=== PATIENT | male | born 1960 | race Caucasian/White ===

== ENCOUNTER 2017-03-03 12:22 | Inpatient (IN) ==
[2017-03-02 16:37] LABS: Appearance,Urine CLEAR; Bacteria,Urine 0 /hpf (0); Bilirubin,Urine NEG (NEG); Color,Urine YELLOW; Glucose,Urine (UA) >=500 mg/dL (NEG); Leukocyte Esterase,Urine NEG /uL (NEG); Mucus,Urine FEW /hpf (0); Nitrate,Urine NEG (NEG); Protein,Urine >=500 mg/dL (NEG); Specific Gravity,Urine 1.027 (1.000-1.035); Urine Blood NEG mg/dL (<0.03); Urine RBC 2 /hpf (0-1); Urine Squamous Epithelial Cell < 1 /hpf (0-4); Urine WBC 4 /hpf (0-4); Urobilinogen,Urine NEG (NEG)
[2017-03-02 18:07] LABS: Basophils # (Auto) 0 K/mcL (0.0-0.3); Basophils % (Auto) 0.3 % (0.0-2.0); Eosinophils # (Auto) 0.2 K/mcL (0.0-0.7); Eosinophils % (Auto) 1.7 % (0.0-7.0); Granulocytes % (Auto) 79.9 % (38.0-78.0); Lymphocytes # (Auto) 1.3 K/mcL (1.5-4.8); Lymphocytes % (Auto) 12.8 % (15.5-49.0); Mean Cell Volume 87.4 fL (80.0-100.0); Mean Corpuscular HGB Conc 32.8 g/dL (31.0-36.0); Mean Corpuscular Hemoglobin 28.6 pg (26.0-34.0); Monocytes # (Auto) 0.6 K/mcL (0.1-0.9); Monocytes % (Auto) 5.3 % (1.0-12.0); Platelet Count 293 K/mcL (140-440); RBC 3.36 M/mcL (4.50-5.90); Red Cell Distribution Width 13.5 % (11.5-14.5)
[2017-03-02 19:37] LABS: Blood Urea Nitrogen 18 mg/dl (6-20)
[~2017-03-03 12:22] MED LIST: ceFAZolin 1 GM VIAL IV SCH
[2017-03-03] MEDS ORDERED: LIDOCAINE HCL/PF 100 MG/5 ML SYRINGE IV ONE (14:04)
[2017-03-03] MEDS ORDERED: KETAMINE 100 MG/ML ML ONE (14:04)
[2017-03-03] MEDS ORDERED: PROPOFOL 200 MG/20 ML VIAL IV ONE (14:04)
[2017-03-03] MEDS ORDERED: GLYCOPYRROLATE 0.2 MG/ML VIAL IV ONE (14:04)
[2017-03-03] MEDS ORDERED: ONDANSETRON 4 MG/2 ML VIAL ONE (14:04)
[2017-03-03] MEDS ORDERED: MIDAZOLAM 2 MG/2 ML VIAL ONE (14:04)
[2017-03-03] MEDS ORDERED: PROMETHAZINE 25 MG/ML VIAL IV PRN (14:38)
[2017-03-03] MEDS ORDERED: METHOCARBAMOL 1,000 MG/10 ML VIAL IV PRN (14:38)
[2017-03-03] MEDS ORDERED: ONDANSETRON 4 MG/2 ML VIAL IV PRN ×2 (14:38→15:01)
[2017-03-03] MEDS ORDERED: IPRATROPIUM/ALBUTEROL 3 ML AMPUL.NEB NEB PRN (14:38)
[2017-03-03] MEDS ORDERED: MEPERIDINE 25 MG/ML SYRINGE IV PRN (14:38)
[2017-03-03] MEDS ORDERED: LACTATED RINGERS 1,000 ML IV SCH (14:45)
[2017-03-03] MEDS ORDERED: MAGNESIUM HYDROXIDE 30 ML ORAL.SUSP PO PRN (15:01)
[2017-03-03] MEDS ORDERED: BENZONATATE 100 MG CAPSULE PO PRN (15:10)
[2017-03-03] MEDS ORDERED: HYDROcodone/APAP 5/325MG TABLET PO PRN (15:10)
[2017-03-03] MEDS ORDERED: INSULIN DETEMIR 100 UNIT SUB-Q SCH (15:15)
[2017-03-03] MEDS ORDERED: 0.9 % SODIUM CHLORIDE 1,000 ML IV SCH (15:15)
[2017-03-03] MEDS ORDERED: NON FORMULARY MEDICATION 1 DOSE MISCELL (Sildenafil Citrate [Viagra] 100 MG) PO SCH (15:15)
[2017-03-03] MEDS: fentaNYL 100 MCG/2 ML VIAL IV PRN ×3 (15:20→15:53)
[2017-03-03] MEDS ORDERED: TRANEXAMIC ACID 1,000 MG/10 ML VIAL IV ONE (15:30)
--- NOTE | 2017-03-03 15:31 | Brief Operative Note ---
Date of procedure: 03/03/17 Pre-op diagnosis: Dehiscence BK amputation Post-op diagnosis: same Procedure: Revision BKA right Grafts/Implants: No Anesthesia: GETA Findings: traumatic dehiscence Complications: none Surgeon: Edgard Patterson Metalizer: Tan Fry Estimated blood loss (cc): 250 Specimens Removed/Pathology: other (bone biopsy and bone culture) Condition: stable Disposition: PACU
--- NOTE | 2017-03-03 16:08 | Operative Note ---
DATE OF OPERATION: 03/03/2017 PREOPERATIVE DIAGNOSIS: Traumatic dehiscence, right tapdh-smo-seii amputation. POSTOPERATIVE DIAGNOSIS: Traumatic dehiscence, right joshj-vuf-lnxx amputation. OPERATION: Revision lasyl-krv-tqcy amputation. SURGEON: Edgard Patterson M.D. SCREW DRIVER OPERATOR: Tan Fry PA-C. ANESTHESIA: General. SUMMARY OF PROCEDURE: General anesthesia was attained. The right leg was prepped and draped. The patient's wound had dehisced from falling out of bed while not wearing his postoperative brace. There was exposed bone. I made a more proximal incision by 5 to 10 mm on both the anterior and posterior flaps. This was taken down directly to the bone. The skin was not mobile at this point. I resected the bone about 1 cm to 1.5 cm above the previous osteotomy. The fibula was re-osteotomized with the saw as well. I then took a biopsy of the tibial bone as well as a culture using a rongeur and a curet. The wound was thoroughly irrigated. The tourniquet was let down. Arterial bleeding was stopped by tying with 0 silk. I then sprayed 1 gram of tranexamic acid diluted in 50 mL of saline to assist with hemostasis. After the irrigation and application of the acid, the wound was closed in layers using 0 Monocryl deep, 2-0 Monocryl more superficially, and praveen and mattress sutures of #2 and 2-0 nylon on the skin. A sterile compressive dressing was applied followed by a posterior splint. The sponge and needle count was correct. The patient tolerated the procedure well and was taken to the recovery room in stable condition. TJF:mely Job ID: [id number] Doc ID: [id number] Edgard Patterson MD
[2017-03-03] MEDS ORDERED: DEXTROSE 50% 50 ML VIAL IV PRN (17:45)
[2017-03-03] MEDS ORDERED: DEXTROSE 31 GM ORAL.SUSP PO PRN (17:45)
--- NOTE | 2017-03-03 17:55 | Internal Medicine Consult Note ---
Medical - CN: HPI - Data of Consult Patient: new to practice Consult date: 03/03/17 Requesting Physician: Edgard Patterson Primary Care Provider: Buddy Galloway - Consult Narrative Reason for consult: Hyperglycemia, Medical Management. History of present illness: Mr. Molina is a 56 year old Male with h/o DM, HTN, HLD, CKD, Right BKA who was admitted to the ortho service for revision of right BKA per the patient chart and patient, he fell down 3 -4 weeks ago, and injued the stump, the stump split open then, the patient was seen in [facility] ER and then later in the wound clinic to hep with wound management, apparanetly it did not help and therefore stump revision was planned. The patient has chr pain in the right leg, phantom pains he notes, he notes he has dry mouth, thristy and hungry. He has not taken his usual insulin x 2 days, due to appointments as well as planned sx today, he admits to having some kidney issues and is scheduled to see Dr Rey HE did some lab work yesterday which revealed K 5.2, Glucose 6.5, Na 126, no anion gap or acidosis, creat was 2.0, he was anemic at around 9.5. The patient underwent the right stump revion today , Medicine is consulted for medical management. beyond the leg pain, and dryness of mouth, hunger, patient has no other complaints. CC: Edgard Patterson All systems: reviewed and no additional remarkable complaints except as stated ( as per HPI) Medical - CN: [facility] Medical history: Medical History Absence of lower leg below knee (Acute) Pruritus ani (Acute) Onychomycosis (Acute) Pressure ulcer, lower back (Acute) Psoriasis (Acute) Urinary stream slowing (Acute) Urinary retention (Acute) Spider bite (Acute) Microalbuminuria (Acute) Hypertension, essential (Acute) Hyperlipidemia (Acute) Foot pain (Acute) Eczema (Acute) Diabetes mellitus, type II (Acute) Depressive disorder (Acute) Depression (Acute) Aortic aneurysm (Acute) Amputated toe (Acute) Surgical history: Past Surgical History History of surgery on arm (Acute) History of surgical removal of skin lesion (Acute) H/O amputation of lesser toe (Acute) History of tonsillectomy (Acute) History of colonoscopy (Acute 02/02/13) History of cataract surgery (Acute) History of amputation below knee (Acute) Pertinent family history: Family History Unknown No family history of malignant neoplasm No family history of cardiovascular disease Mother Chronic Kidney Disease Medical - CN: Meds Home Medications Medication Instructions Recorded Confirmed Type aspirin 325 mg tablet 650 mg PO QDAY tab 08/19/14 03/02/17 History docusate sodium 100 mg capsule 100 mg PO BID cap 08/19/14 03/02/17 History enalapril maleate 10 mg tablet 5 mg PO QDAY tab 08/19/14 03/02/17 History ergocalciferol (vitamin D2) 50,000 50,000 unit PO QWEEK cap 08/19/14 03/02/17 History unit capsule hydrocodone 5 mg-acetaminophen 325 1 tab PO Q8H PRN tab 08/19/14 03/02/17 History mg tablet insulin detemir 100 unit/mL 100 unit SUB-Q .COMPLEX ml 08/19/14 03/02/17 History subcutaneous solution metformin 500 mg tablet 500 mg PO QDAY tab 08/19/14 03/02/17 History omega-3 fatty acids 1,000 mg 1,000 mg PO BID cap 08/19/14 03/02/17 History capsule sildenafil 100 mg tablet 100 mg PO ONCE #10 tab 04/02/15 03/02/17 Rx tamsulosin 0.4 mg capsule 0.4 mg PO QDAY #30 cap 11/09/16 03/02/17 Rx Amitriptyline [Elavil] 25 mg PO HS 03/02/17 03/02/17 History Benzonatate [Tessalon] 100 mg PO TIDP PRN 03/02/17 03/02/17 History Famotidine [Pepcid] 20 mg PO DAILY 03/02/17 03/02/17 History Triamcinolone Acetonide 15 gm TP DAILY 03/02/17 03/02/17 History Atorvastatin [Lipitor] 20 mg PO HS 03/03/17 03/03/17 History Citalopram [Celexa] 20 mg PO DAILY 03/03/17 03/03/17 History Diltiazem [Cardizem Cd] 120 mg PO DAILY 03/03/17 03/03/17 History Gabapentin [Neurontin] 300 mg PO ONCE 03/03/17 03/03/17 History Insulin Detemir [Levemir Flextouch] 03/03/17 History Allergies Allergy/AdvReac Type Severity Reaction Status Date / Time No Known Drug Allergies Allergy Unverified 04/01/15 14:38 Medical - CN: Exam - Constitutional Vitals: Temp Pulse Resp BP Pulse Ox 98.1 F 81 16 138/65 99 03/03/17 16:30 03/03/17 16:30 03/03/17 16:30 03/03/17 16:30 03/03/17 16:30 Exam: GENERAL: The patient is a well-developed, well-nourished in no apparent distress. Is alert and oriented x3. VITAL SIGNS: Reviewed and as noted elsewhere. HEENT: Head is normocephalic and atraumatic. Extraocular muscles are intact. Pupils are equal, round, and reactive to light. Nares appeared normal. Mouth appears any without lesions. Mucous membranes are dry NECK: Normal to inspection, Supple, No lymphadenopathy or thyromegaly. LUNGS: Air entry equal on both sides, no wheezing, crackles or rhonchi noted. No accessory muscles of respiration HEART: Regular rate and rhythm normal, S1 and S2 heard, no Gallop, S3 or Rub Noted, No Gross murmur heard. ABDOMEN: Soft, nontender, and nondistended. Positive bowel sounds. No hepatosplenomegaly was noted. EXTREMITIES: No cyanosis, clubbing, NEUROLOGIC: Cranial nerves II through XII are grossly intact. Motor and Sensory System Grossly Intact PSYCHIATRIC: Normal affect, Normal Mood. Appropriate Behavior. SKIN: No ulceration or wounds noted, No jaundice, No rash noted. acanthosis nigrams in the neck Medical - CN: Result - Labs CBC & Chem 7: 03/02/17 15:16 03/02/17 15:16 Labs: Short CBC 03/02/17 Range/Units 15:16 WBC 10.4 (4.5-11.0) K/mcL Hgb 9.6 L (13.5-16.5) g/dL Hct 29.4 L (41.0-55.0) % Plt Count 293 (140-440) K/mcL BMP 03/02/17 15:16 Sodium 126 L Potassium 5.2 H Chloride 91 L Carbon Dioxide 24 BUN 18 Creatinine 2.0 H Glucose 605 H* Calcium 8.5 L Medical - CN: A/P - Narrative A/P Narrative: A/P DM uncontrolled: Due to non compliance with meds, GLucose was very high yesterday, better before sx? will repeat labs. NO e/o DKA on yesterdays lab, will check hydroxybutyrate too. IV fluids and ssi insulin for now, if labs suggestive of DKA will exchange operator. FS was 389. d/c metformin in light of renal failure. HTN: BP ok, resumed home medications for blood pressure. HLD resume statin Hyponatremia: likely pseudohyponatremia secondary to elevated glucose Hyperkalemia K was 5.2, recheck, EKG done yesterday was nsr CKD stage 3, creat was 2.0, has been referred to nephrology by PCP, likely secondary to DM. Monitor renal function. BPH: followed by Dr Grande as outpatient, on flomax, continue same. DVT as per surgery CC diet Social History - Tobacco smoking status: Never smoker - Alcohol alcohol intake frequency: a few times a month - Substance use substance use type: former substance user
[2017-03-03 18:21] LABS: Basophils # (Auto) 0 K/mcL (0.0-0.3); Basophils % (Auto) 0.2 % (0.0-2.0); Eosinophils # (Auto) 0.3 K/mcL (0.0-0.7); Eosinophils % (Auto) 3.1 % (0.0-7.0); Granulocytes % (Auto) 73.7 % (38.0-78.0); Lymphocytes # (Auto) 1.5 K/mcL (1.5-4.8); Lymphocytes % (Auto) 16.7 % (15.5-49.0); Mean Cell Volume 87.3 fL (80.0-100.0); Mean Corpuscular HGB Conc 33.2 g/dL (31.0-36.0); Monocytes # (Auto) 0.6 K/mcL (0.1-0.9); Monocytes % (Auto) 6.3 % (1.0-12.0); Platelet Count 248 K/mcL (140-440); RBC 2.84 M/mcL (4.50-5.90); Red Cell Distribution Width 13.5 % (11.5-14.5)
[2017-03-03] MEDS: HYDROcodone/APAP 10/325MG TABLET PO PRN (18:22)
[2017-03-03] MEDS: 0.9 % SODIUM CHLORIDE 1,000 ML IV SCH (18:26)
[2017-03-03 18:44] LABS: ALT/SGPT < 5 U/l (0-40); Albumin 1.8 gm/dL (3.2-5.2); Albumin/Globulin Ratio 0.4 (1.0-2.3); Alkaline Phosphatase 120 U/L (39-117); Bilirubin,Direct < 0.2 mg/dL (0.0-0.3); Blood Urea Nitrogen 15 mg/dl (6-20); Gamma Glutamyl Transpeptidase 11 U/L (8-61); Magnesium 2.1 mg/dL (1.6-2.5); Uric Acid 5.7 mg/dL (2.5-8.0)
[2017-03-03 19:17] LABS: Beta Hydroxybutyrate 0.42 mmol/L (< 0.27)
[2017-03-03] MEDS: INSULIN GLARGINE, HUMAN 1 UNIT/0.01 ML SQ SCH (20:18)
[2017-03-03] MEDS: DOCUSATE SODIUM 100 MG CAPSULE PO SCH (20:18)
[2017-03-03] MEDS: AMITRIPTYLINE 25 MG TABLET PO SCH (20:18)
[2017-03-03] MEDS: ASPIRIN 325 MG ENTERIC COATED TABLET PO SCH (20:18)
[2017-03-03] MEDS: GABAPENTIN 300 MG CAPSULE PO SCH (20:18)
[2017-03-03] MEDS: ATORVASTATIN 20 MG TABLET PO SCH (20:18)
[2017-03-03] MEDS ORDERED: INSULIN LISPRO 1 UNIT/0.01 ML UNIT SQ SCH (21:00)
[2017-03-03] MEDS ORDERED: DOCUSATE SODIUM 100 MG CAPSULE PO SCH (21:00)
[2017-03-03] MEDS: ceFAZolin 1 GM VIAL IV SCH (22:00)
[2017-03-03] MEDS: 0.9 % SODIUM CHLORIDE 10 ML SYRINGE IV SCH (22:01)
[2017-03-04] MEDS: 0.9 % SODIUM CHLORIDE 1,000 ML IV SCH ×2 (00:45→07:38)
[2017-03-04] MEDS: HYDROcodone/APAP 10/325MG TABLET PO PRN ×3 (04:59→17:15)
[2017-03-04] MEDS: ceFAZolin 1 GM VIAL IV SCH (05:30)
[2017-03-04] MEDS: 0.9 % SODIUM CHLORIDE 10 ML SYRINGE IV SCH ×3 (05:39→23:26)
[2017-03-04 06:49] LABS: Basophils # (Auto) 0 K/mcL (0.0-0.3); Basophils % (Auto) 0.3 % (0.0-2.0); Eosinophils # (Auto) 0.4 K/mcL (0.0-0.7); Eosinophils % (Auto) 3.8 % (0.0-7.0); Granulocytes % (Auto) 69.6 % (38.0-78.0); Lymphocytes # (Auto) 1.6 K/mcL (1.5-4.8); Mean Cell Volume 88.3 fL (80.0-100.0); Mean Corpuscular HGB Conc 32.9 g/dL (31.0-36.0); Mean Corpuscular Hemoglobin 29.1 pg (26.0-34.0); Monocytes # (Auto) 0.9 K/mcL (0.1-0.9); Monocytes % (Auto) 9.3 % (1.0-12.0); Platelet Count 247 K/mcL (140-440); RBC 2.67 M/mcL (4.50-5.90); Red Cell Distribution Width 13.6 % (11.5-14.5)
[2017-03-04 07:26] LABS: ALT/SGPT < 5 U/l (0-40); Albumin 1.8 gm/dL (3.2-5.2); Albumin/Globulin Ratio 0.5 (1.0-2.3); Alkaline Phosphatase 108 U/L (39-117); Bilirubin,Direct < 0.2 mg/dL (0.0-0.3); Blood Urea Nitrogen 19 mg/dl (6-20); Gamma Glutamyl Transpeptidase 10 U/L (8-61); Magnesium 2.2 mg/dL (1.6-2.5); Uric Acid 6.3 mg/dL (2.5-8.0)
--- NOTE | 2017-03-04 07:52 | Orthopedic Progress Note ---
Subjective Patient information: Note initiated : 03/04/17 at 7:50 am Service Date, if different from initiated Date: [] Patient: Sree Molina 56 y/o M admitted on 03/03/17 for Amputation Revision Right Leg Below the Knee. Chief Complaint: [] Principal diagnosis: Revison amputattion yesterday Objective Vital signs: Vital Signs Temp Pulse Pulse Resp BP Pulse Ox 03/04/17 04:00 97.5 F 82 16 144/83 98 03/04/17 00:00 97.5 F 82 16 102/65 96 03/03/17 20:00 98.5 F 98 H 18 131/71 94 03/03/17 18:45 98.5 F 89 18 157/83 97 03/03/17 16:55 82 18 164/88 98 03/03/17 16:40 86 16 156/91 100 03/03/17 16:30 98.1 F 81 16 138/65 99 03/03/17 16:25 83 16 132/59 98 03/03/17 16:10 97.9 F 81 16 127/85 97 03/03/17 15:50 97.8 F 79 16 154/82 99 03/03/17 15:35 97.8 F 81 16 150/80 100 03/03/17 15:30 97.8 F 83 16 100/60 100 03/03/17 15:25 97.8 F 81 16 100/53 100 03/03/17 15:20 97.8 F 78 16 128/68 100 03/03/17 12:45 97.6 F 81 16 154/75 100 Intake and Output 03/03/17 03/04/17 03/04/17 21:59 05:59 13:59 Intake Total 1999 1348 / 1348 1000 / 1000 Output Total 400 / 400 Balance 1999 948 / 948 1000 / 1000 Intake: IV 948 / 948 1000 / 1000 Sodium Chloride 0.9% 1,000 ml @ 948 / 948 1000 / 1000 150 mls/hr IV .Q6H40M [facility] Rx#: [id number] Oral 800 / 800 400 / 400 IV - Manual Only 1200 / 1200 Output: Urine Catheter Amount 400 / 400 Other: Meal Dinner Percent of Meal Consumed 100% Feeding Ability Assist with Tray Set Up Weight 240 lb 8 oz Intake & Output: Intake & Output 03/03/17 03/04/17 03/04/17 21:59 05:59 13:59 Intake Total 1999 1348 / 1348 1000 / 1000 Output Total 400 / 400 Balance 1999 948 / 948 1000 / 1000 Weight 240 lb 8 oz Intake: IV 948 / 948 1000 / 1000 Sodium Chloride 0.9% 1,000 ml @ 948 / 948 1000 / 1000 150 mls/hr IV .Q6H40M [facility] Rx#: [id number] Oral 800 / 800 400 / 400 IV - Manual Only 1200 / 1200 Output: Urine Catheter Amount 400 / 400 Other: Meal Dinner Percent of Meal Consumed 100% Feeding Ability Assist with Tray Set Up Dressing: Yes clean, Yes dry, Yes intact, Yes splint in place - Labs CBC & BMP: 03/04/17 04:28 03/04/17 04:28 Labs: 03/04/17 03/03/17 03/03/17 04:28 17:37 17:37 Hgb 7.8 L 8.2 L Hct 23.6 L 24.8 L TNP 03/02/17 15:16 Hgb 9.6 L Hct 29.4 L Assessment and Plan (1) History of amputation below knee No complications. Dr Polanco managing glucose. PT today to mobilize Status: Acute
[2017-03-04] MEDS ORDERED: metFORMIN 500 MG TABLET PO SCH (08:00)
[2017-03-04] MEDS: INSULIN GLARGINE, HUMAN 1 UNIT/0.01 ML SQ SCH ×2 (08:05→20:56)
[2017-03-04] MEDS: INSULIN LISPRO 1 UNIT/0.01 ML UNIT SQ SCH ×5 (08:05→20:56)
[2017-03-04] MEDS ORDERED: TAMSULOSIN 0.4 MG CAPSULE PO SCH (09:00)
[2017-03-04] MEDS ORDERED: ASPIRIN 325 MG TABLET.DR PO SCH (09:00)
[2017-03-04] MEDS ORDERED: LISINOPRIL 5 MG TABLET PO SCH (09:00)
[2017-03-04] MEDS: ASPIRIN 325 MG ENTERIC COATED TABLET PO SCH ×2 (09:16→20:55)
[2017-03-04] MEDS: DILTIAZEM 120 MG CAP.XL.24H PO SCH (09:16)
[2017-03-04] MEDS: CITALOPRAM 20 MG TABLET PO SCH (09:16)
[2017-03-04] MEDS: FAMOTIDINE 20 MG TABLET PO SCH (09:16)
[2017-03-04] MEDS: FISH OIL 1,000 MG CAPSULE PO SCH ×2 (09:16→20:55)
[2017-03-04] MEDS: DOCUSATE SODIUM 100 MG CAPSULE PO SCH ×2 (09:16→20:56)
[2017-03-04] MEDS: GABAPENTIN 300 MG CAPSULE PO SCH ×2 (09:17→20:55)
[2017-03-04] MEDS: TRIAMCINOLONE ACETONIDE TOPICAL SCH (10:22)
--- NOTE | 2017-03-04 12:57 | Internal Med Progress Note ---
Medical - PN: Subj Patient information: Note initiated : 03/04/17 at 12:55 pm Service Date, if different from initiated Date: [] Patient: Sree Molina a 56 y/o M admitted on 03/03/17 for Amputation Revision Right Leg Below the Knee. Chief Complaint: [] Interval history: Mr. Molina is a 56 year old Male with h/o DM, HTN, HLD, CKD, Right BKA who was admitted to the ortho service for revision of right BKA per the patient chart and patient, he fell down 3 -4 weeks ago, and injued the stump, the stump split open then, the patient was seen in [facility] ER and then later in the wound clinic to hep with wound management, apparanetly it did not help and therefore stump revision was planned. The patient has chr pain in the right leg, phantom pains he notes, he notes he has dry mouth, thristy and hungry. He has not taken his usual insulin x 2 days, due to appointments as well as planned sx today, he admits to having some kidney issues and is scheduled to see Dr Rey HE did some lab work yesterday which revealed K 5.2, Glucose 6.5, Na 126, no anion gap or acidosis, creat was 2.0, he was anemic at around 9.5. The patient underwent the right stump revion today , Medicine is consulted for medical management. beyond the leg pain, and dryness of mouth, hunger, patient has no other complaints. Mar 04 Patient seen examined, no acute overnight issues pt tolerating po well glucose was low overniht, but has gone up again today dose of lantus increased, sliding scale also changed from low to medium Pt has no acute complaints Pertinent ROS: Denies headache, dizziness Denies chest pain, palpitations Denies cough or shortness of breath Denies abdominal pain, nausea or vomiting. - Constitutional Vitals: Vital Signs Temp Pulse Resp BP Pulse Ox 98.1 F 82 16 150/84 95 03/04/17 11:16 03/04/17 04:00 03/04/17 11:16 03/04/17 11:16 03/04/17 11:16 Period Temp Pulse Resp BP Sys/Enriquez Pulse Ox Last 24 Hr 97.5 F-98.5 F 78-98 16-20 100-164/53-91 94-100 Intake and Output 03/03/17 03/04/17 03/04/17 21:59 05:59 13:59 Intake Total 1999 1348 / 1348 2180 / 2180 Output Total 400 / 400 50 / 50 Balance 1999 948 / 948 2130 / 2130 Weight 240 lb 8 oz Intake & Output: Intake & Output 03/03/17 03/04/17 03/04/17 21:59 05:59 13:59 Intake Total 1999 1348 / 1348 2180 / 2180 Output Total 400 / 400 50 / 50 Balance 1999 948 / 948 2130 / 2130 Weight 240 lb 8 oz Intake: IV 948 / 948 1000 / 1000 Sodium Chloride 0.9% 1,000 ml @ 948 / 948 1000 / 1000 150 mls/hr IV .Q6H40M [facility] Rx#: [id number] Oral 800 / 800 400 / 400 1180 / 1180 IV - Manual Only 1200 / 1200 Output: Urine Catheter Amount 400 / 400 Void Amount 50 / 50 Other: Meal Dinner Lunch Percent of Meal Consumed 100% 100% Feeding Ability Assist with Tray Set Up Assist with Tray Set Up # Voids 1 # Bowel Movements 0 Exam: Constitutional; Afebrile, cooperative, alert, not in distress. Eyes- No icterus, , No periorbital swelling Ears- Ext ear normal, hearing normal to conversation. Neck- Midline trachea, supple Respiratory system: Air Entry equal on both sides, No crackles or wheezing, no rhonchi. CVS- Rate rhythm regular, S1,S2 heard, no gallop, no rub. Abdomen- Soft nontender abdomen, no organomegaly, no tenderness, no guarding or rigidity, INVENTORY AND PRICING ASSOCIATE- AOOx3, Medical - PN: Obj Da - Labs CBC & Chem 7: 03/04/17 04:28 03/04/17 04:28 Labs: Abnormal Lab Results 03/04/17 03/04/17 03/03/17 04:28 04:28 17:37 RBC 2.67 L Hgb 7.8 L Hct 23.6 L Gran % Lymph % (Auto) Gran # Lymph # (Auto) Sodium 131 L Potassium Chloride Creatinine 2.5 H 1.8 H Glucose 167 H 410 H Calcium 7.4 L 7.7 L Alkaline Phosphatase 120 H Total Protein 5.7 L Albumin 1.8 L 1.8 L Globulin 3.9 H 4.2 H Albumin/Globulin Ratio 0.5 L 0.4 L Triglycerides 234 H 274 H Beta-Hydroxybutyrate 0.42 H Urine Protein Urine Glucose (UA) Urine RBC 03/03/17 03/02/17 03/02/17 17:37 15:28 15:16 RBC 2.84 L Hgb 8.2 L Hct 24.8 L Gran % Lymph % (Auto) Gran # Lymph # (Auto) Sodium 126 L Potassium 5.2 H Chloride 91 L Creatinine 2.0 H Glucose 605 H* Calcium 8.5 L Alkaline Phosphatase Total Protein Albumin Globulin Albumin/Globulin Ratio Triglycerides Beta-Hydroxybutyrate Urine Protein >=500 A Urine Glucose (UA) >=500 A Urine RBC 2 H 03/02/17 15:16 RBC 3.36 L Hgb 9.6 L Hct 29.4 L Gran % 79.9 H Lymph % (Auto) 12.8 L Gran # 8.3 H Lymph # (Auto) 1.3 L Sodium Potassium Chloride Creatinine Glucose Calcium Alkaline Phosphatase Total Protein Albumin Globulin Albumin/Globulin Ratio Triglycerides Beta-Hydroxybutyrate Urine Protein Urine Glucose (UA) Urine RBC Meds: Medications Hydrocodone Bitart/Acetaminophen (Norvell 10/325mg) 0 tab PO Q4HP PRN PRN Reason: PAIN LEVEL 3-6 Last Admin: 03/04/17 09:16 Dose: 2 tab Amitriptyline HCl (Elavil) 25 mg PO HS [facility] Last Admin: 03/03/17 20:18 Dose: 25 mg Aspirin (Ecotrin) 325 mg PO BID [facility] Last Admin: 03/04/17 09:16 Dose: 325 mg Atorvastatin Calcium (Lipitor) 20 mg PO HS [facility] Last Admin: 03/03/17 20:18 Dose: 20 mg Benzonatate (Tessalon) 100 mg PO TIDP PRN PRN Reason: Cough Citalopram Hydrobromide (Celexa) 20 mg PO DAILY [facility] Last Admin: 03/04/17 09:16 Dose: 20 mg Dextrose (Dextrose 50%) 0 ml IV UD PRN PRN Reason: Hypoglycemia Diagnostic Test (Pha) (Accu-Chek) 1 each FS ACHS [facility] Last Admin: 03/04/17 11:45 Dose: 1 each Diltiazem HCl (Cardizem Cd) 120 mg PO DAILY [facility] Last Admin: 03/04/17 09:16 Dose: 120 mg Docusate Sodium (Colace) 100 mg PO BID [facility] Last Admin: 03/04/17 09:16 Dose: 100 mg Ergocalciferol (Drisdol) 50,000 unit PO Sorto@0900 [facility] Famotidine (Pepcid) 20 mg PO DAILY [facility] Last Admin: 03/04/17 09:16 Dose: 20 mg Fish Oil (Fish Oil) 1,000 mg PO BID [facility] Last Admin: 03/04/17 09:16 Dose: 1,000 mg Gabapentin (Neurontin) 300 mg PO BID [facility] Last Admin: 03/04/17 09:17 Dose: 300 mg Glucose (Insta-Glucose) 15 gm PO PRN PRN PRN Reason: Hypoglycemia Sodium Chloride (Sodium Chloride 0.9%) 1,000 mls @ 150 mls/hr IV .Q6H40M [facility] Stop: 03/04/17 13:42 Last Admin: 03/04/17 07:38 Dose: 150 mls/hr Insulin Glargine (Lantus) 15 unit SQ BID [facility] Last Admin: 03/04/17 08:05 Dose: 15 unit Insulin Human Lispro (Humalog) 0 unit SQ ACHS [facility] PRN Reason: Protocol Magnesium Hydroxide (Milk Of Magnesia) 30 ml PO BIDP PRN PRN Reason: Constipation Ondansetron HCl (Zofran) 4 mg IV Q4HP PRN PRN Reason: Nausea And Vomiting Triamcinolone Acetonide [ Triamcinolone Acetonide] Cream 15 dose TOPICAL DAILY [facility] Last Admin: 03/04/17 10:22 Dose: Not Given Sodium Chloride (Saline Flush) 10 ml IV Q8 [facility] Last Admin: 03/04/17 05:39 Dose: Not Given Tamsulosin HCl (Flomax) 0.4 mg PO QDAY [facility] Last Admin: 03/04/17 09:16 Dose: 0.4 mg Medical - PN: A/P - Time Spent With Patient Total time spent is greater than 50% in coordination of care (as documented) at patient's floor/unit and/or counseling patient: - Narrative A/P Narrative: A/P DM uncontrolled: Due to non compliance with meds, glucose elevlated yesterday, dropped down, but up again today, adjust dose of insulin, to 15 bid lantus and med scale SSI protocol, monitor. Wound infection: Cutlures positive for staph aureus, discuss with ortho if this needs to be treated as he recently had surgery in that stump. HTN: BP ok, continue home bp meds. HLD resume statin Hyponatremia: likely pseudohyponatremia secondary to elevated glucose, resolved now. Hyperkalemia K was 5.2, recheck, EKG done yesterday was nsr CKD stage 3, creat was 2.0, trended up today, monitor, on IVF. BPH: followed by Dr Grande as outpatient, on flomax, continue same. prn straight cath as needed. increase dose of flow max to 0.4mg bid. DVT as per surgery CC diet Medical - PN: Qual - VTE Deep Vein Thrombosis/Pulmonary Embolism Present on Admission: No
[2017-03-04] MEDS ORDERED: VANCOMYCIN 1,000 MG in 0.9 % SODIUM CHLORIDE 250 ML IV ONE (13:00)
[2017-03-04] MEDS ORDERED: VANCOMYCIN PER PHARMACY IV SCH (13:00)
[2017-03-04] MEDS ORDERED: VANCOMYCIN 1,500 MG in 0.9 % SODIUM CHLORIDE 500 ML IV ONE (13:30)
[2017-03-04] MEDS: PIPERACILLIN SODIUM/TAZOBACTAM 2.25 GM in DEXTROSE 5% IN WATER 50 ML IV SCH ×3 (15:09→23:26)
[2017-03-04] MEDS: AMITRIPTYLINE 25 MG TABLET PO SCH (20:55)
[2017-03-04] MEDS: TAMSULOSIN 0.4 MG CAPSULE PO SCH (20:55)
[2017-03-04] MEDS: ATORVASTATIN 20 MG TABLET PO SCH (20:55)
[2017-03-05] MEDS: HYDROcodone/APAP 10/325MG TABLET PO PRN (04:49)
[2017-03-05 06:07] LABS: Basophils # (Auto) 0 K/mcL (0.0-0.3); Basophils % (Auto) 0.3 % (0.0-2.0); Eosinophils # (Auto) 0.5 K/mcL (0.0-0.7); Eosinophils % (Auto) 5.8 % (0.0-7.0); Granulocytes % (Auto) 65.3 % (38.0-78.0); Lymphocytes # (Auto) 1.8 K/mcL (1.5-4.8); Mean Cell Volume 88.3 fL (80.0-100.0); Mean Corpuscular HGB Conc 33.1 g/dL (31.0-36.0); Mean Corpuscular Hemoglobin 29.2 pg (26.0-34.0); Monocytes # (Auto) 0.9 K/mcL (0.1-0.9); Monocytes % (Auto) 9.6 % (1.0-12.0); Platelet Count 250 K/mcL (140-440); RBC 2.48 M/mcL (4.50-5.90); Red Cell Distribution Width 13.7 % (11.5-14.5)
[2017-03-05] MEDS: PIPERACILLIN SODIUM/TAZOBACTAM 2.25 GM in DEXTROSE 5% IN WATER 50 ML IV SCH ×4 (06:09→23:30)
[2017-03-05] MEDS: 0.9 % SODIUM CHLORIDE 10 ML SYRINGE IV SCH ×3 (06:09→20:04)
[2017-03-05 06:24] LABS: ALT/SGPT < 5 U/l (0-40); Albumin 1.6 gm/dL (3.2-5.2); Albumin/Globulin Ratio 0.4 (1.0-2.3); Alkaline Phosphatase 91 U/L (39-117); Bilirubin,Direct < 0.2 mg/dL (0.0-0.3); Blood Urea Nitrogen 26 mg/dl (6-20); Gamma Glutamyl Transpeptidase 10 U/L (8-61); Magnesium 2.2 mg/dL (1.6-2.5)
[2017-03-05] MEDS ORDERED: 0.9 % SODIUM CHLORIDE 1,000 ML IV ONE (07:29)
[2017-03-05] MEDS: INSULIN LISPRO 1 UNIT/0.01 ML UNIT SQ SCH ×4 (09:21→20:03)
[2017-03-05] MEDS: TRIAMCINOLONE ACETONIDE TOPICAL SCH (09:21)
[2017-03-05] MEDS ORDERED: 0.9 % SODIUM CHLORIDE 250 ML IV SCH (09:45)
[2017-03-05] MEDS: INSULIN GLARGINE, HUMAN 1 UNIT/0.01 ML SQ SCH ×2 (09:55→20:04)
[2017-03-05] MEDS: DILTIAZEM 120 MG CAP.XL.24H PO SCH (09:55)
[2017-03-05] MEDS: FAMOTIDINE 20 MG TABLET PO SCH (09:55)
[2017-03-05] MEDS: ASPIRIN 325 MG ENTERIC COATED TABLET PO SCH ×2 (09:55→20:03)
[2017-03-05] MEDS: TAMSULOSIN 0.4 MG CAPSULE PO SCH (09:55)
[2017-03-05] MEDS: GABAPENTIN 300 MG CAPSULE PO SCH (09:55)
[2017-03-05] MEDS: DOCUSATE SODIUM 100 MG CAPSULE PO SCH ×2 (09:55→20:03)
[2017-03-05] MEDS: CITALOPRAM 20 MG TABLET PO SCH (09:55)
[2017-03-05] MEDS: FISH OIL 1,000 MG CAPSULE PO SCH ×2 (09:55→20:03)
--- NOTE | 2017-03-05 12:07 | Ultrasound Report ---
CLINICAL INFORMATION: Renal failure COMPARISON: None. FINDINGS: Both kidneys are normal and symmetric in size, position and configuration: The right is 11 x 5.7 cm and the left is 12.8 x 5.5 cm. Echotexture is normal and no focal renal lesions. Urinary bladder volume is 177 cc. patient unable to void. No focal bladder lesions. IMPRESSION: Negative Interpreted and Authenticated by: Jaspreet Villela 03/05/17
--- NOTE | 2017-03-05 12:10 | XRay Report ---
CLINICAL INFORMATION: Cough COMPARISON: 02/12/2011 FINDINGS: Cardiomediastinal silhouette is accentuated by poor inspiratory result, right rotation and portable technique. The heart is likely mildly enlarged. Pulmonary vessels are unremarkable. The lungs are clear. No effusions IMPRESSION: Mild cardiomegaly. No acute disease Interpreted and Authenticated by: Jaspreet Villela 03/05/17
[2017-03-05 13:04] LABS: Basophils # (Auto) 0 K/mcL (0.0-0.3); Basophils % (Auto) 0.4 % (0.0-2.0); Eosinophils # (Auto) 0.5 K/mcL (0.0-0.7); Eosinophils % (Auto) 6.1 % (0.0-7.0); Granulocytes % (Auto) 63.6 % (38.0-78.0); Lymphocytes # (Auto) 1.9 K/mcL (1.5-4.8); Lymphocytes % (Auto) 21.6 % (15.5-49.0); Mean Cell Volume 87.9 fL (80.0-100.0); Mean Corpuscular HGB Conc 33.2 g/dL (31.0-36.0); Mean Corpuscular Hemoglobin 29.2 pg (26.0-34.0); Monocytes # (Auto) 0.7 K/mcL (0.1-0.9); Monocytes % (Auto) 8.3 % (1.0-12.0); Platelet Count 244 K/mcL (140-440); Red Cell Distribution Width 13.6 % (11.5-14.5)
--- NOTE | 2017-03-05 13:17 | Internal Med Progress Note ---
Medical - PN: Subj Patient information: Note initiated : 03/05/17 at 1:14 pm Service Date, if different from initiated Date: [] Patient: Sree Molina a 56 y/o M admitted on 03/03/17 for Amputation Revision Right Leg Below the Knee. Chief Complaint: [] Interval history: Mr. Molina is a 56 year old Male with h/o DM, HTN, HLD, CKD, Right BKA who was admitted to the ortho service for revision of right BKA per the patient chart and patient, he fell down 3 -4 weeks ago, and injued the stump, the stump split open then, the patient was seen in [facility] ER and then later in the wound clinic to hep with wound management, apparanetly it did not help and therefore stump revision was planned. The patient has chr pain in the right leg, phantom pains he notes, he notes he has dry mouth, thristy and hungry. He has not taken his usual insulin x 2 days, due to appointments as well as planned sx today, he admits to having some kidney issues and is scheduled to see Dr Rey HE did some lab work yesterday which revealed K 5.2, Glucose 6.5, Na 126, no anion gap or acidosis, creat was 2.0, he was anemic at around 9.5. The patient underwent the right stump revion today , Medicine is consulted for medical management. beyond the leg pain, and dryness of mouth, hunger, patient has no other complaints. Mar 04 Patient seen examined, no acute overnight issues pt tolerating po well glucose was low overniht, but has gone up again today dose of lantus increased, sliding scale also changed from low to medium Pt has no acute complaints Mar 05 patient seen examined, low grade temp noted fall in hb noted to 7, getting 1 unit pt microbiolgoy is mssa satph pt this AM was very drowsy and sleepy and confused. not willing to talk much and intermittently confused labs show drop in hb, and worsening renal function, repeat labs ordered cxr neg abg neg will get head ct glucose control ok Pertinent ROS: unable, pt drowsy, sleepy - Constitutional Vitals: Vital Signs Temp Pulse Resp BP Pulse Ox 99.0 F H 70 16 105/64 96 03/05/17 11:36 03/05/17 09:22 03/05/17 11:36 03/05/17 11:36 03/05/17 11:36 Period Temp Pulse Resp BP Sys/Enriquez Pulse Ox Last 24 Hr 96.3 F-100.6 F 70-82 14-18 95-132/55-81 91-98 Intake and Output 03/04/17 03/05/17 03/05/17 21:59 05:59 13:59 Intake Total 1989 400 / 400 300 / 300 Balance 1989 400 / 400 300 / 300 Weight 243 lb Intake & Output: Intake & Output 03/04/17 03/05/17 03/05/17 21:59 05:59 13:59 Intake Total 1989 400 / 400 300 / 300 Balance 1989 400 / 400 300 / 300 Weight 243 lb Intake: IV 1600 / 1600 50 / 50 100 / 100 Zosyn 2.25 gm In Dextrose 5% in 100 / 100 50 / 50 100 / 100 Water 50 ml @ 100 mls/hr IV Q6H [facility] Rx#:[id number] Oral 390 / 390 350 / 350 200 / 200 Other: Meal Dinner HS snack Breakfast Percent of Meal Consumed 100% 100% 25% Feeding Ability Assist with Tray Set Up Assist with Tray Set Up # Voids 0 Exam: Constitutional; , cooperative, but sleepy, wakes up to verbal stimuli but goes back to sleep. Eyes- No icterus, , No periorbital swelling Ears- Ext ear normal, hearing normal to conversation. Neck- Midline trachea, supple Respiratory system: Air Entry equal on both sides, No crackles or wheezing, no rhonchi. CVS- Rate rhythm regular, S1,S2 heard, no gallop, no rub. Abdomen- Soft nontender abdomen, no organomegaly, no tenderness, no guarding or rigidity, COMPENSATION SPECIALIST- AOOx2-3 just sleepy , moving all extremities, no gross focal deficit noted. Medical - PN: Obj Da - Labs CBC & Chem 7: 03/05/17 12:20 03/05/17 04:45 Labs: Abnormal Lab Results 03/05/17 03/05/17 03/05/17 12:20 04:45 04:45 RBC 2.40 L 2.48 L Hgb 7.0 L* 7.2 L Hct 21.1 L 21.9 L Gran % Lymph % (Auto) Gran # Lymph # (Auto) Sodium 132 L Potassium Chloride Carbon Dioxide 20 L BUN 26 H Creatinine 3.7 H Glucose 117 H Calcium 6.9 L Alkaline Phosphatase Total Protein 5.6 L Albumin 1.6 L Globulin 4.0 H Albumin/Globulin Ratio 0.4 L Triglycerides 231 H Beta-Hydroxybutyrate Urine Protein Urine Glucose (UA) Urine RBC 03/04/17 03/04/17 03/03/17 04:28 04:28 17:37 RBC 2.67 L Hgb 7.8 L Hct 23.6 L Gran % Lymph % (Auto) Gran # Lymph # (Auto) Sodium 131 L Potassium Chloride Carbon Dioxide BUN Creatinine 2.5 H 1.8 H Glucose 167 H 410 H Calcium 7.4 L 7.7 L Alkaline Phosphatase 120 H Total Protein 5.7 L Albumin 1.8 L 1.8 L Globulin 3.9 H 4.2 H Albumin/Globulin Ratio 0.5 L 0.4 L Triglycerides 234 H 274 H Beta-Hydroxybutyrate 0.42 H Urine Protein Urine Glucose (UA) Urine RBC 03/03/17 03/02/17 03/02/17 17:37 15:28 15:16 RBC 2.84 L Hgb 8.2 L Hct 24.8 L Gran % Lymph % (Auto) Gran # Lymph # (Auto) Sodium 126 L Potassium 5.2 H Chloride 91 L Carbon Dioxide BUN Creatinine 2.0 H Glucose 605 H* Calcium 8.5 L Alkaline Phosphatase Total Protein Albumin Globulin Albumin/Globulin Ratio Triglycerides Beta-Hydroxybutyrate Urine Protein >=500 A Urine Glucose (UA) >=500 A Urine RBC 2 H 03/02/17 15:16 RBC 3.36 L Hgb 9.6 L Hct 29.4 L Gran % 79.9 H Lymph % (Auto) 12.8 L Gran # 8.3 H Lymph # (Auto) 1.3 L Sodium Potassium Chloride Carbon Dioxide BUN Creatinine Glucose Calcium Alkaline Phosphatase Total Protein Albumin Globulin Albumin/Globulin Ratio Triglycerides Beta-Hydroxybutyrate Urine Protein Urine Glucose (UA) Urine RBC Meds: Medications Hydrocodone Bitart/Acetaminophen (Russell 10/325mg) 0 tab PO Q4HP PRN PRN Reason: PAIN LEVEL 3-6 Last Admin: 03/05/17 04:49 Dose: 2 tab Amitriptyline HCl (Elavil) 25 mg PO HS [facility] Last Admin: 03/04/17 20:55 Dose: 25 mg Aspirin (Ecotrin) 325 mg PO BID [facility] Last Admin: 03/05/17 09:55 Dose: 325 mg Atorvastatin Calcium (Lipitor) 20 mg PO HS [facility] Last Admin: 03/04/17 20:55 Dose: 20 mg Benzonatate (Tessalon) 100 mg PO TIDP PRN PRN Reason: Cough Citalopram Hydrobromide (Celexa) 20 mg PO DAILY [facility] Last Admin: 03/05/17 09:55 Dose: 20 mg Dextrose (Dextrose 50%) 0 ml IV UD PRN PRN Reason: Hypoglycemia Diagnostic Test (Pha) (Accu-Chek) 1 each FS ACHS [facility] Last Admin: 03/05/17 12:08 Dose: 1 each Diltiazem HCl (Cardizem Cd) 120 mg PO DAILY [facility] Last Admin: 03/05/17 09:55 Dose: 120 mg Docusate Sodium (Colace) 100 mg PO BID [facility] Last Admin: 03/05/17 09:55 Dose: 100 mg Ergocalciferol (Drisdol) 50,000 unit PO Sorto@0900 [facility] Famotidine (Pepcid) 20 mg PO DAILY [facility] Last Admin: 03/05/17 09:55 Dose: 20 mg Fish Oil (Fish Oil) 1,000 mg PO BID [facility] Last Admin: 03/05/17 09:55 Dose: 1,000 mg Gabapentin (Neurontin) 300 mg PO BID [facility] Last Admin: 03/05/17 09:55 Dose: 300 mg Glucose (Insta-Glucose) 15 gm PO PRN PRN PRN Reason: Hypoglycemia Piperacillin Sod/Tazobactam (Sod 2.25 gm/ Dextrose) 50 mls @ 100 mls/hr IV Q6H [facility] Last Infusion: 03/05/17 12:43 Dose: Infused Sodium Chloride (Sodium Chloride 0.9%) 250 mls @ 20 mls/hr IV .[id number] [facility] Stop: 03/05/17 22:14 Insulin Glargine (Lantus) 15 unit SQ BID [facility] Last Admin: 03/05/17 09:55 Dose: 15 unit Insulin Human Lispro (Humalog) 0 unit SQ ACHS [facility] PRN Reason: Protocol Last Admin: 03/05/17 09:21 Dose: Not Given Magnesium Hydroxide (Milk Of Magnesia) 30 ml PO BIDP PRN PRN Reason: Constipation Ondansetron HCl (Zofran) 4 mg IV Q4HP PRN PRN Reason: Nausea And Vomiting Triamcinolone Acetonide [ Triamcinolone Acetonide] Cream 15 dose TOPICAL DAILY [facility] Last Admin: 03/05/17 09:21 Dose: Not Given Sodium Chloride (Saline Flush) 10 ml IV Q8 [facility] Last Admin: 03/05/17 06:09 Dose: 10 ml Tamsulosin HCl (Flomax) 0.4 mg PO BID [facility] Last Admin: 03/05/17 09:55 Dose: 0.4 mg Vancomycin HCl (Vancomycin Per Pharmacy) 1 order IV UD [facility] Medical - PN: A/P - Time Spent With Patient Total time spent is greater than 50% in coordination of care (as documented) at patient's floor/unit and/or counseling patient: - Narrative A/P Narrative: A/P DM uncontrolled: Due to non compliance with meds, glucose elevlated yesterday, dropped down, but up again today, adjust dose of insulin, to 15 bid lantus and med scale SSI protocol, monitor. Acute on chr renal failure, very poor urine output, place amos, IVF, renal sonogram done is negative. get urine studies, trend labs, if worsening despite fluids, get nephrology eval acute blood loss anemia: 1 unit prbc ordered by ortho. Wound infection: Cultures positive for staph aureus, on broad spectrum abx will deescalate given mssa. d/c vanco. on zosyn for now, will need augmentin at discharge. HTN: BP ok, continue home bp meds. HLD resume statin Hyponatremia: likely pseudohyponatremia secondary to elevated glucose, resolved now. Hyperkalemia K was 5.2, recheck, EKG done yesterday was nsr, resolved BPH: followed by Dr Grande as outpatient, on flomax, continue same. increase dose of flow max to 0.4mg bid. place amos for urine output measurement as well as need for frequent cath. DVT as per surgery CC diet Medical - PN: Qual - VTE Deep Vein Thrombosis/Pulmonary Embolism Present on Admission: No
[2017-03-05 13:34] LABS: Blood Urea Nitrogen 26 mg/dl (6-20)
[2017-03-05 15:01] LABS: Appearance,Urine CLOUDY; Bacteria,Urine 0 /hpf (0); Bilirubin,Urine NEG (NEG); Color,Urine YELLOW; Glucose,Urine (UA) 150 mg/dL (NEG); Leukocyte Esterase,Urine 25 /uL (NEG); Nitrate,Urine NEG (NEG); Protein,Urine >=500 mg/dL (NEG); Specific Gravity,Urine 1.018 (1.000-1.035); Urine Blood 0.03 mg/dL (<0.03); Urine RBC < 1 /hpf (0-1); Urine Squamous Epithelial Cell < 1 /hpf (0-4); Urine Transitional Epi Cells < 1 /hpf (0-2); Urine WBC 4 /hpf (0-4); Urobilinogen,Urine NEG (NEG)
[2017-03-05 17:05] LABS: Blood Urea Nitrogen 27 mg/dl (6-20)
[2017-03-05] MEDS ORDERED: SODIUM POLYSTYRENE SULFONATE 15 GM/60 ML SUSPENSION PO ONE (17:07)
--- NOTE | 2017-03-05 17:32 | Nephrology Progress Note ---
Subjective Patient information: Note initiated : 03/05/17 at 5:25 pm Service Date, if different from initiated Date: [] Patient: Sree Molina 56 y/o M admitted on 03/03/17 for Amputation Revision Right Leg Below the Knee. Chief Complaint: OUSMANE on CKD Chart reviewed Principal diagnosis: Revison amputattion yesterday Objective - Vital Signs Vital signs: Vital Signs Temp Pulse Resp BP Pulse Ox 03/05/17 16:30 98.6 F 82 12 110/72 100 03/05/17 15:32 98.8 F 20 114/75 95 03/05/17 14:08 99.2 F H 77 12 100/66 97 03/05/17 13:58 100.1 F H 77 12 97/60 97 03/05/17 11:36 99.0 F H 16 105/64 96 03/05/17 09:22 100.6 F H 70 14 100/64 97 03/05/17 06:30 100.2 F H 16 115/72 95 03/05/17 06:06 99.7 F H 03/05/17 05:25 99.9 F H 03/05/17 04:30 100.1 F H 75 18 96/55 95 03/04/17 23:53 97.9 F 82 16 114/81 98 03/04/17 20:00 97.4 F 75 14 95/63 97 Intake and Output 03/05/17 03/05/17 03/05/17 05:59 13:59 21:59 Intake Total 400 / 400 610 / 610 300 / 300 Balance 400 / 400 610 / 610 300 / 300 Intake: IV 50 / 50 100 / 100 Zosyn 2.25 gm In Dextrose 5% in 50 / 50 100 / 100 Water 50 ml @ 100 mls/hr IV Q6H [facility] Rx#:[id number] Oral 350 / 350 200 / 200 300 / 300 Blood Product 310 / 310 Other: Meal HS snack Breakfast Percent of Meal Consumed 100% 25% Feeding Ability Assist with Tray Set Up Intake & Output: Intake & Output 03/05/17 03/05/17 03/05/17 05:59 13:59 21:59 Intake Total 400 / 400 610 / 610 300 / 300 Balance 400 / 400 610 / 610 300 / 300 Intake: IV 50 / 50 100 / 100 Zosyn 2.25 gm In Dextrose 5% in 50 / 50 100 / 100 Water 50 ml @ 100 mls/hr IV Q6H [facility] Rx#:[id number] Oral 350 / 350 200 / 200 300 / 300 Blood Product 310 / 310 Other: Meal HS snack Breakfast Percent of Meal Consumed 100% 25% Feeding Ability Assist with Tray Set Up - Lab 03/05/17 12:20 03/05/17 15:55 Most recent lab results Calcium 6.6 mg/dl (8.6-10.4) L 03/05/17 15:55 Phosphorus 4.4 mg/dL (2.7-4.5) 03/05/17 04:45 Magnesium 2.2 mg/dL (1.6-2.5) 03/05/17 04:45 Assessment and Plan (1) Acute kidney injury Status: Acute Comment: Patient with chronic kidney disease, baseline creatinine of 2.0, admitted for revision of right BKA. Post op he has been hypotensive, low grade fever and increasing confusion. Making less urine and now almost oliguric. Creatinine up to 3.7. OUSMANE secondary to ATN. He is also hypotensive. Will stop all meds that would drop his bp. He would benefit from diuretics but bp is low. He might benefit from low dose vassopressin to keep bp higher. He is getting antibiotics. Stop neurontin and use minimum narcotics.
[2017-03-05] MEDS: 0.9 % SODIUM CHLORIDE 1,000 ML IV SCH (17:48)
--- NOTE | 2017-03-05 19:53 | Cat Scan Report ---
CLINICAL INFORMATION: Decreased mental status COMPARISON: None. TECHNIQUE: 2.5 mm helical slices were obtained in the skull base to vertex. Following reconstruction, axial reformatted images were reviewed at bone and parenchymal windows. The exam was performed using radiation dose optimization techniques including, but not limited to, automated exposure control, adjustment of the mA and/or kV according to patient size and use of iterative reconstruction technique. FINDINGS: The ventricles, sulci, fissures, and cisterns are normal in size and configuration. No extra-axial fluid collections are identified. The cerebrum, brainstem and cerebellum are unremarkable. There is no evidence of hemorrhage, mass effect, or edema. Bone windows show no osseous abnormality. IMPRESSION: Normal head CT without contrast. Interpreted and Authenticated by: Jaspreet Villela 03/05/17
[2017-03-05] MEDS: AMITRIPTYLINE 25 MG TABLET PO SCH (20:03)
[2017-03-05] MEDS: ATORVASTATIN 20 MG TABLET PO SCH (20:03)
--- NOTE | 2017-03-05 20:12 | Orthopedic Progress Note ---
Subjective Patient information: Note initiated : 03/05/17 at 8:10 pm Service Date, if different from initiated Date: [] Patient: Sree Molina 56 y/o M admitted on 03/03/17 for Amputation Revision Right Leg Below the Knee. Chief Complaint: [] Principal diagnosis: Revison amputattion yesterday Objective Vital signs: Vital Signs Temp Pulse Resp BP Pulse Ox 03/05/17 19:01 98.5 F 03/05/17 18:59 100.3 F H 80 12 120/82 97 03/05/17 16:30 98.6 F 82 12 110/72 100 03/05/17 15:32 98.8 F 20 114/75 95 03/05/17 14:08 99.2 F H 77 12 100/66 97 03/05/17 13:58 100.1 F H 77 12 97/60 97 03/05/17 11:36 99.0 F H 16 105/64 96 03/05/17 09:22 100.6 F H 70 14 100/64 97 03/05/17 06:30 100.2 F H 16 115/72 95 03/05/17 06:06 99.7 F H 03/05/17 05:25 99.9 F H 03/05/17 04:30 100.1 F H 75 18 96/55 95 03/04/17 23:53 97.9 F 82 16 114/81 98 Intake and Output 03/05/17 03/05/17 03/05/17 05:59 13:59 21:59 Intake Total 400 / 400 610 / 610 350 / 350 Output Total 550 / 550 Balance 400 / 400 610 / 610 -200 / -200 Intake: IV 50 / 50 100 / 100 50 / 50 Zosyn 2.25 gm In Dextrose 5% in 50 / 50 100 / 100 50 / 50 Water 50 ml @ 100 mls/hr IV Q6H [facility] Rx#:[id number] Oral 350 / 350 200 / 200 300 / 300 Blood Product 310 / 310 Output: Urine Catheter Amount 550 / 550 Other: Meal HS snack Breakfast Percent of Meal Consumed 100% 25% Feeding Ability Assist with Tray Set Up Weight 241 lb Patient Weight 03/06/17 05:59 Weight 241 lb Intake & Output: Intake & Output 03/05/17 03/05/17 03/05/17 05:59 13:59 21:59 Intake Total 400 / 400 610 / 610 350 / 350 Output Total 550 / 550 Balance 400 / 400 610 / 610 -200 / -200 Weight 241 lb Intake: IV 50 / 50 100 / 100 50 / 50 Zosyn 2.25 gm In Dextrose 5% in 50 / 50 100 / 100 50 / 50 Water 50 ml @ 100 mls/hr IV Q6H [facility] Rx#:[id number] Oral 350 / 350 200 / 200 300 / 300 Blood Product 310 / 310 Output: Urine Catheter Amount 550 / 550 Other: Meal HS snack Breakfast Percent of Meal Consumed 100% 25% Feeding Ability Assist with Tray Set Up Dressing: Yes clean, Yes dry, Yes intact, Yes splint in place Weight bearing status: non - Labs CBC & BMP: 03/05/17 12:20 03/05/17 15:55 Labs: 03/05/17 03/05/17 03/04/17 12:20 04:45 04:28 Hgb 7.0 L* 7.2 L 7.8 L Hct 21.1 L 21.9 L 23.6 L 03/03/17 03/03/17 03/02/17 17:37 17:37 15:16 Hgb 8.2 L 9.6 L Hct 24.8 L TNP 29.4 L Assessment and Plan (1) History of amputation below knee Anemia, low urine output. Transfusioin ordered, discussed with pt. Medical eval per hospitalists. OOB to chair Status: Acute
[2017-03-05 21:49] LABS: Blood Urea Nitrogen 28 mg/dl (6-20)
[2017-03-06] MEDS: 0.9 % SODIUM CHLORIDE 1,000 ML IV SCH (04:37)
[2017-03-06] MEDS: 0.9 % SODIUM CHLORIDE 10 ML SYRINGE IV SCH ×3 (04:37→21:11)
[2017-03-06 05:29] LABS: Basophils # (Auto) 0 K/mcL (0.0-0.3); Basophils % (Auto) 0.3 % (0.0-2.0); Eosinophils # (Auto) 0.5 K/mcL (0.0-0.7); Eosinophils % (Auto) 7.1 % (0.0-7.0); Granulocytes % (Auto) 60.6 % (38.0-78.0); Lymphocytes # (Auto) 1.7 K/mcL (1.5-4.8); Lymphocytes % (Auto) 22.8 % (15.5-49.0); Mean Cell Volume 88.9 fL (80.0-100.0); Mean Corpuscular HGB Conc 33.2 g/dL (31.0-36.0); Mean Corpuscular Hemoglobin 29.5 pg (26.0-34.0); Monocytes # (Auto) 0.7 K/mcL (0.1-0.9); Monocytes % (Auto) 9.2 % (1.0-12.0); Platelet Count 212 K/mcL (140-440); RBC 2.44 M/mcL (4.50-5.90); Red Cell Distribution Width 13.5 % (11.5-14.5)
[2017-03-06] MEDS: PIPERACILLIN SODIUM/TAZOBACTAM 2.25 GM in DEXTROSE 5% IN WATER 50 ML IV SCH ×4 (05:37→23:45)
[2017-03-06 05:59] LABS: ALT/SGPT < 5 U/l (0-40); Albumin 1.5 gm/dL (3.2-5.2); Albumin/Globulin Ratio 0.4 (1.0-2.3); Alkaline Phosphatase 83 U/L (39-117); Bilirubin,Direct < 0.2 mg/dL (0.0-0.3); Blood Urea Nitrogen 28 mg/dl (6-20); Gamma Glutamyl Transpeptidase 9 U/L (8-61); Magnesium 2.2 mg/dL (1.6-2.5); Uric Acid 7.6 mg/dL (2.5-8.0)
[2017-03-06] MEDS: INSULIN LISPRO 1 UNIT/0.01 ML UNIT SQ SCH ×4 (07:32→21:09)
[2017-03-06] MEDS ORDERED: VANCOMYCIN 1,500 MG in 0.9 % SODIUM CHLORIDE 500 ML IV ONE (10:00)
[2017-03-06] MEDS: ASPIRIN 325 MG ENTERIC COATED TABLET PO SCH ×2 (10:16→21:10)
[2017-03-06] MEDS: FISH OIL 1,000 MG CAPSULE PO SCH ×2 (10:16→21:10)
[2017-03-06] MEDS: FAMOTIDINE 20 MG TABLET PO SCH (10:17)
[2017-03-06] MEDS: INSULIN GLARGINE, HUMAN 1 UNIT/0.01 ML SQ SCH ×2 (10:17→21:10)
[2017-03-06] MEDS: TRIAMCINOLONE ACETONIDE TOPICAL SCH (10:17)
[2017-03-06] MEDS: CITALOPRAM 20 MG TABLET PO SCH (10:17)
[2017-03-06] MEDS: DOCUSATE SODIUM 100 MG CAPSULE PO SCH ×2 (10:17→21:15)
--- NOTE | 2017-03-06 12:22 | Internal Med Progress Note ---
Medical - PN: Subj Patient information: Note initiated : 03/06/17 at 12:20 pm Service Date, if different from initiated Date: [] Patient: Sree Molina a 56 y/o M admitted on 03/03/17 for Amputation Revision Right Leg Below the Knee. Chief Complaint: [] Interval history: Mr. Molina is a 56 year old Male with h/o DM, HTN, HLD, CKD, Right BKA who was admitted to the ortho service for revision of right BKA per the patient chart and patient, he fell down 3 -4 weeks ago, and injued the stump, the stump split open then, the patient was seen in [facility] ER and then later in the wound clinic to hep with wound management, apparanetly it did not help and therefore stump revision was planned. The patient has chr pain in the right leg, phantom pains he notes, he notes he has dry mouth, thristy and hungry. He has not taken his usual insulin x 2 days, due to appointments as well as planned sx today, he admits to having some kidney issues and is scheduled to see Dr Rey HE did some lab work yesterday which revealed K 5.2, Glucose 6.5, Na 126, no anion gap or acidosis, creat was 2.0, he was anemic at around 9.5. The patient underwent the right stump revion today , Medicine is consulted for medical management. beyond the leg pain, and dryness of mouth, hunger, patient has no other complaints. Mar 04 Patient seen examined, no acute overnight issues pt tolerating po well glucose was low overniht, but has gone up again today dose of lantus increased, sliding scale also changed from low to medium Pt has no acute complaints Mar 05 patient seen examined, low grade temp noted fall in hb noted to 7, getting 1 unit pt microbiolgoy is mssa satph pt this AM was very drowsy and sleepy and confused. not willing to talk much and intermittently confused labs show drop in hb, and worsening renal function, repeat labs ordered cxr neg abg neg will get head ct glucose control ok mar 06 patient seen examined, mental status much better head ct neg, workup neg anemia better afte transfusion good urine output, renal function still high, c reat is at 3.9 appreciate nephrology help keep BP > 100 systolic for good perfusion. will switch to augmentin at discahrge. mssa staph infection. Pertinent ROS: Denies headache, dizziness Denies chest pain, palpitations Denies cough or shortness of breath Denies abdominal pain, nausea or vomiting. - Constitutional Vitals: Vital Signs Temp Pulse Resp BP Pulse Ox 99 F 73 20 121/83 95 03/06/17 11:27 03/06/17 03:48 03/06/17 11:27 03/06/17 11:27 03/06/17 11:27 Period Temp Pulse Resp BP Sys/Enriquez Pulse Ox Last 24 Hr 97.3 F-100.3 F 73-82 12-20 97-121/60-83 95-100 Intake and Output 03/05/17 03/06/17 03/06/17 21:59 05:59 13:59 Intake Total 350 / 350 1300 / 1300 50 / 50 Output Total 550 / 550 475 / 475 Balance -200 / -200 825 / 825 50 / 50 Weight 241 lb Intake & Output: Intake & Output 03/05/17 03/06/17 03/06/17 21:59 05:59 13:59 Intake Total 350 / 350 1300 / 1300 50 / 50 Output Total 550 / 550 475 / 475 Balance -200 / -200 825 / 825 50 / 50 Weight 241 lb Intake: IV 50 / 50 1050 / 1050 50 / 50 Sodium Chloride 0.9% 1,000 ml @ 1000 / 1000 100 mls/hr IV .Q10H [facility] Rx#: [id number] Zosyn 2.25 gm In Dextrose 5% in 50 / 50 50 / 50 50 / 50 Water 50 ml @ 100 mls/hr IV Q6H [facility] Rx#:[id number] Oral 300 / 300 250 / 250 Output: Urine Catheter Amount 550 / 550 475 / 475 Other: # Bowel Movements 1 # of times incontinent of 1 1 Bowels Exam: Constitutional; Afebrile, cooperative, alert, not in distress. Eyes- No icterus, , No periorbital swelling Ears- Ext ear normal, hearing normal to conversation. Neck- Midline trachea, supple Respiratory system: Air Entry equal on both sides, No crackles or wheezing, no rhonchi. CVS- Rate rhythm regular, S1,S2 heard, no gallop, no rub. Abdomen- Soft nontender abdomen, no organomegaly, no tenderness, no guarding or rigidity, [employer]- AOOx3, moving all extremities, no gross focal deficit noted. Medical - PN: Obj Da - Labs CBC & Chem 7: 03/06/17 08:11 03/06/17 04:19 Labs: Abnormal Lab Results 03/06/17 03/06/17 03/06/17 08:11 04:19 04:19 RBC 2.44 L Hgb 8.2 L 7.2 L Hct 24.5 L 21.7 L Eos % (Auto) 7.1 H Sodium Potassium Carbon Dioxide 18 L BUN 28 H Creatinine 3.9 H Glucose Calcium 6.5 L Alkaline Phosphatase Total Creatine Kinase NT-Pro-B Natriuret Pep 1046.0 H Total Protein 5.2 L Albumin 1.5 L Globulin Albumin/Globulin Ratio 0.4 L Triglycerides 194 H Beta-Hydroxybutyrate Urine Protein Urine Glucose (UA) Urine Ketones Urine Occult Blood Ur Leukocyte Esterase U [place] Prot/Creat Ratio 03/05/17 03/05/17 03/05/17 20:49 15:55 14:13 RBC Hgb Hct Eos % (Auto) Sodium 132 L Potassium 5.6 H Carbon Dioxide 19 L 19 L BUN 28 H 27 H Creatinine 3.9 H 3.9 H Glucose 158 H 159 H Calcium 6.7 L 6.6 L Alkaline Phosphatase Total Creatine Kinase NT-Pro-B Natriuret Pep Total Protein Albumin Globulin Albumin/Globulin Ratio Triglycerides Beta-Hydroxybutyrate Urine Protein >=500 A Urine Glucose (UA) 150 A Urine Ketones 5/tr A Urine Occult Blood 0.03 A Ur Leukocyte Esterase 25 A U [place] Prot/Creat Ratio 03/05/17 03/05/17 03/05/17 14:13 12:20 12:20 RBC Hgb Hct Eos % (Auto) Sodium 132 L Potassium Carbon Dioxide 18 L BUN 26 H Creatinine 3.9 H Glucose 143 H Calcium 6.6 L Alkaline Phosphatase Total Creatine Kinase 244 H NT-Pro-B Natriuret Pep Total Protein Albumin Globulin Albumin/Globulin Ratio Triglycerides Beta-Hydroxybutyrate Urine Protein Urine Glucose (UA) Urine Ketones Urine Occult Blood Ur Leukocyte Esterase U [place] Prot/Creat Ratio 1.79 H 03/05/17 03/05/17 03/05/17 12:20 04:45 04:45 RBC 2.40 L 2.48 L Hgb 7.0 L* 7.2 L Hct 21.1 L 21.9 L Eos % (Auto) Sodium 132 L Potassium Carbon Dioxide 20 L BUN 26 H Creatinine 3.7 H Glucose 117 H Calcium 6.9 L Alkaline Phosphatase Total Creatine Kinase NT-Pro-B Natriuret Pep Total Protein 5.6 L Albumin 1.6 L Globulin 4.0 H Albumin/Globulin Ratio 0.4 L Triglycerides 231 H Beta-Hydroxybutyrate Urine Protein Urine Glucose (UA) Urine Ketones Urine Occult Blood Ur Leukocyte Esterase U [place] Prot/Creat Ratio 03/04/17 03/04/17 03/03/17 04:28 04:28 17:37 RBC 2.67 L Hgb 7.8 L Hct 23.6 L Eos % (Auto) Sodium 131 L Potassium Carbon Dioxide BUN Creatinine 2.5 H 1.8 H Glucose 167 H 410 H Calcium 7.4 L 7.7 L Alkaline Phosphatase 120 H Total Creatine Kinase NT-Pro-B Natriuret Pep Total Protein 5.7 L Albumin 1.8 L 1.8 L Globulin 3.9 H 4.2 H Albumin/Globulin Ratio 0.5 L 0.4 L Triglycerides 234 H 274 H Beta-Hydroxybutyrate 0.42 H Urine Protein Urine Glucose (UA) Urine Ketones Urine Occult Blood Ur Leukocyte Esterase U [place] Prot/Creat Ratio 03/03/17 17:37 RBC 2.84 L Hgb 8.2 L Hct 24.8 L Eos % (Auto) Sodium Potassium Carbon Dioxide BUN Creatinine Glucose Calcium Alkaline Phosphatase Total Creatine Kinase NT-Pro-B Natriuret Pep Total Protein Albumin Globulin Albumin/Globulin Ratio Triglycerides Beta-Hydroxybutyrate Urine Protein Urine Glucose (UA) Urine Ketones Urine Occult Blood Ur Leukocyte Esterase U [place] Prot/Creat Ratio Meds: Medications Amitriptyline HCl (Elavil) 25 mg PO HS [facility] Last Admin: 03/05/17 20:03 Dose: 25 mg Aspirin (Ecotrin) 325 mg PO BID [facility] Last Admin: 03/06/17 10:16 Dose: 325 mg Atorvastatin Calcium (Lipitor) 20 mg PO HS [facility] Last Admin: 03/05/17 20:03 Dose: 20 mg Benzonatate (Tessalon) 100 mg PO TIDP PRN PRN Reason: Cough Citalopram Hydrobromide (Celexa) 20 mg PO DAILY [facility] Last Admin: 03/06/17 10:17 Dose: 20 mg Dextrose (Dextrose 50%) 0 ml IV UD PRN PRN Reason: Hypoglycemia Diagnostic Test (Pha) (Accu-Chek) 1 each FS ACHS [facility] Last Admin: 03/06/17 12:08 Dose: 1 each Docusate Sodium (Colace) 100 mg PO BID [facility] Last Admin: 03/06/17 10:17 Dose: Not Given Ergocalciferol (Drisdol) 50,000 unit PO Sorto@0900 [facility] Famotidine (Pepcid) 20 mg PO DAILY [facility] Last Admin: 03/06/17 10:17 Dose: 20 mg Fish Oil (Fish Oil) 1,000 mg PO BID [facility] Last Admin: 03/06/17 10:16 Dose: 1,000 mg Glucose (Insta-Glucose) 15 gm PO PRN PRN PRN Reason: Hypoglycemia Piperacillin Sod/Tazobactam (Sod 2.25 gm/ Dextrose) 50 mls @ 100 mls/hr IV Q6H [facility] Last Admin: 03/06/17 12:07 Dose: 100 mls/hr Sodium Chloride (Sodium Chloride 0.9%) 1,000 mls @ 100 mls/hr IV .Q10H [facility] Stop: 03/06/17 13:44 Last Admin: 03/06/17 04:37 Dose: 100 mls/hr Insulin Glargine (Lantus) 15 unit SQ BID [facility] Last Admin: 03/06/17 10:17 Dose: 15 unit Insulin Human Lispro (Humalog) 0 unit SQ ACHS [facility] PRN Reason: Protocol Last Admin: 03/06/17 07:32 Dose: Not Given Magnesium Hydroxide (Milk Of Magnesia) 30 ml PO BIDP PRN PRN Reason: Constipation Ondansetron HCl (Zofran) 4 mg IV Q4HP PRN PRN Reason: Nausea And Vomiting Triamcinolone Acetonide [ Triamcinolone Acetonide] Cream 15 dose TOPICAL DAILY [facility] Last Admin: 03/06/17 10:17 Dose: Not Given Sodium Chloride (Saline Flush) 10 ml IV Q8 [facility] Last Admin: 03/06/17 04:37 Dose: Not Given Medical - PN: A/P - Time Spent With Patient Total time spent is greater than 50% in coordination of care (as documented) at patient's floor/unit and/or counseling patient: - Narrative A/P Narrative: A/P DM uncontrolled: Due to non compliance with meds, better controlled today, continue with lantus 15 units bid, and med scale ssi Acute on chr renal failure, : appreciate nephrolgoy input, likely ATN, monitor renal function. acute blood loss anemia: 1 unit prbc ordered by ortho. hb 8.2 today, monitor. Wound infection: Cultures positive for staph aureus, on broad spectrum abx will deescalate given mssa. d/c vanco. on zosyn for now, will need augmentin at discharge. HTN: BP ok, but on the lower end, hold bp meds to improve renal perfusion. HLD resume statin Hyponatremia: likely pseudohyponatremia secondary to elevated glucose, resolved now. Hyperkalemia K resolved with kayesalate. BPH: followed by Dr Grande as outpatient, on flomax, continue same. increase dose of flow max to 0.4mg bid. place amos for urine output measurement as well as need for frequent cath. DVT as per surgery CC diet Medical - PN: Qual - VTE Deep Vein Thrombosis/Pulmonary Embolism Present on Admission: No
--- NOTE | 2017-03-06 12:47 | Orthopedic Progress Note ---
Subjective Patient information: Note initiated : 03/06/17 at 12:45 pm Service Date, if different from initiated Date: [] Patient: Sree Molina 56 y/o M admitted on 03/03/17 for Amputation Revision Right Leg Below the Knee. Chief Complaint: [] Principal diagnosis: reamputation 3 days vago, renal failure Objective Vital signs: Vital Signs Temp Pulse Resp BP Pulse Ox 03/06/17 11:27 99 F 20 121/83 95 03/06/17 06:59 97.9 F 16 118/80 97 03/06/17 03:48 97.6 F 73 16 120/76 98 03/05/17 23:37 97.3 F 73 12 120/80 95 03/05/17 19:01 98.5 F 03/05/17 18:59 100.3 F H 80 12 120/82 97 03/05/17 16:30 98.6 F 82 12 110/72 100 03/05/17 15:32 98.8 F 20 114/75 95 03/05/17 14:08 99.2 F H 77 12 100/66 97 03/05/17 13:58 100.1 F H 77 12 97/60 97 Intake and Output 03/05/17 03/06/17 03/06/17 21:59 05:59 13:59 Intake Total 350 / 350 1300 / 1300 50 / 50 Output Total 550 / 550 475 / 475 Balance -200 / -200 825 / 825 50 / 50 Intake: IV 50 / 50 1050 / 1050 50 / 50 Sodium Chloride 0.9% 1,000 ml @ 1000 / 1000 100 mls/hr IV .Q10H [facility] Rx#: [id number] Zosyn 2.25 gm In Dextrose 5% in 50 / 50 50 / 50 50 / 50 Water 50 ml @ 100 mls/hr IV Q6H [facility] Rx#:[id number] Oral 300 / 300 250 / 250 Output: Urine Catheter Amount 550 / 550 475 / 475 Other: # Bowel Movements 1 # of times incontinent of 1 1 Bowels Weight 241 lb Intake & Output: Intake & Output 03/05/17 03/06/17 03/06/17 21:59 05:59 13:59 Intake Total 350 / 350 1300 / 1300 50 / 50 Output Total 550 / 550 475 / 475 Balance -200 / -200 825 / 825 50 / 50 Weight 241 lb Intake: IV 50 / 50 1050 / 1050 50 / 50 Sodium Chloride 0.9% 1,000 ml @ 1000 / 1000 100 mls/hr IV .Q10H [facility] Rx#: [id number] Zosyn 2.25 gm In Dextrose 5% in 50 / 50 50 / 50 50 / 50 Water 50 ml @ 100 mls/hr IV Q6H [facility] Rx#:[id number] Oral 300 / 300 250 / 250 Output: Urine Catheter Amount 550 / 550 475 / 475 Other: # Bowel Movements 1 # of times incontinent of 1 1 Bowels Incision: Yes healing Incision clean and dry: Yes Extremities exam IM: Yes full ROM - Labs CBC & BMP: 03/06/17 08:11 03/06/17 04:19 Labs: 03/06/17 03/06/17 03/05/17 08:11 04:19 12:20 Hgb 8.2 L 7.2 L 7.0 L* Hct 24.5 L 21.7 L 21.1 L 03/05/17 03/04/17 03/03/17 04:45 04:28 17:37 Hgb 7.2 L 7.8 L 8.2 L Hct 21.9 L 23.6 L 24.8 L 03/03/17 03/02/17 17:37 15:16 Hgb 9.6 L Hct TNP 29.4 L Assessment and Plan (1) History of amputation below knee hct 24 better, making urine await path report to see if pt needa antibiotics at discharge (possible tomorrow ) Status: Acute
[2017-03-06] MEDS: ATORVASTATIN 20 MG TABLET PO SCH (21:10)
[2017-03-06] MEDS: AMITRIPTYLINE 25 MG TABLET PO SCH (21:10)
[2017-03-07 05:22] LABS: Basophils # (Auto) 0 K/mcL (0.0-0.3); Basophils % (Auto) 0.3 % (0.0-2.0); Eosinophils # (Auto) 0.6 K/mcL (0.0-0.7); Eosinophils % (Auto) 5.8 % (0.0-7.0); Granulocytes % (Auto) 67.7 % (38.0-78.0); Lymphocytes # (Auto) 1.9 K/mcL (1.5-4.8); Lymphocytes % (Auto) 19.5 % (15.5-49.0); Mean Cell Volume 89.7 fL (80.0-100.0); Mean Corpuscular HGB Conc 33.2 g/dL (31.0-36.0); Mean Corpuscular Hemoglobin 29.7 pg (26.0-34.0); Monocytes # (Auto) 0.7 K/mcL (0.1-0.9); Monocytes % (Auto) 6.7 % (1.0-12.0); Platelet Count 275 K/mcL (140-440); RBC 2.71 M/mcL (4.50-5.90)
[2017-03-07] MEDS: PIPERACILLIN SODIUM/TAZOBACTAM 2.25 GM in DEXTROSE 5% IN WATER 50 ML IV SCH ×2 (05:36→12:31)
[2017-03-07] MEDS: 0.9 % SODIUM CHLORIDE 10 ML SYRINGE IV SCH ×3 (05:36→22:07)
[2017-03-07 06:00] LABS: ALT/SGPT < 5 U/l (0-40); Albumin 1.8 gm/dL (3.2-5.2); Albumin/Globulin Ratio 0.4 (1.0-2.3); Alkaline Phosphatase 93 U/L (39-117); Bilirubin,Direct < 0.2 mg/dL (0.0-0.3); Blood Urea Nitrogen 25 mg/dl (6-20); Gamma Glutamyl Transpeptidase 13 U/L (8-61); Magnesium 2.3 mg/dL (1.6-2.5); Uric Acid 7.4 mg/dL (2.5-8.0)
--- NOTE | 2017-03-07 07:29 | Discharge Summary ---
Ortho Discharge Plan - General - Patient Instructions Diet: Consistent Carbohydrate Activity: activity as tolerated Dressing Care: Cover dressing in shower Patient Education: Below the Knee Amputation (DC) - Follow Up Plan Follow Up Appointments: Tan Fry PA-C [Physician Online Marketing Coordinator] - Disposition: [facility] Prognosis: Fair Rehab Potential: Fair I certify that the patient requires SNF services: Yes Overall status at discharge: patient is progressing back to baseline
--- NOTE | 2017-03-07 07:33 | Orthopedic Progress Note ---
Subjective Patient information: Note initiated : 03/07/17 at 7:29 am Service Date, if different from initiated Date: [] Patient: Sree Molina 56 y/o M admitted on 03/03/17 for Amputation Revision Right Leg Below the Knee. Chief Complaint: [] Principal diagnosis: reamputation 3 days vago, renal failure Interval history: Patient is feeling well today. Little pain in amputation. Denies any other acute symptoms. Objective Vital signs: Vital Signs Temp Pulse Pulse Resp BP BP Pulse Ox 03/07/17 07:28 90 96 03/07/17 06:56 98.7 F 18 143/80 97 03/07/17 04:08 145/80 03/07/17 04:00 97.9 F 89 12 156/82 96 03/06/17 23:41 98.9 F 83 12 132/80 98 03/06/17 20:00 98.9 F 80 16 130/90 98 03/06/17 15:12 98.9 F 18 108/63 95 03/06/17 11:27 99 F 20 121/83 95 Intake and Output 03/06/17 03/07/17 03/07/17 21:59 05:59 13:59 Intake Total 610 / 610 2900 / 2900 Output Total 1650 / 1650 575 / 575 Balance -1040 / -1040 2325 / 2325 Intake: IV 50 / 50 2550 / 2550 Zosyn 2.25 gm In Dextrose 5% in 50 / 50 50 / 50 Water 50 ml @ 100 mls/hr IV Q6H [facility] Rx#:[id number] Oral 560 / 560 350 / 350 Output: Urine Catheter Amount 1650 / 1650 575 / 575 Other: Weight 246 lb Intake & Output: Intake & Output 03/06/17 03/07/17 03/07/17 21:59 05:59 13:59 Intake Total 610 / 610 2900 / 2900 Output Total 1650 / 1650 575 / 575 Balance -1040 / -1040 2325 / 2325 Weight 246 lb Intake: IV 50 / 50 2550 / 2550 Zosyn 2.25 gm In Dextrose 5% in 50 / 50 50 / 50 Water 50 ml @ 100 mls/hr IV Q6H [facility] Rx#:[id number] Oral 560 / 560 350 / 350 Output: Urine Catheter Amount 1650 / 1650 575 / 575 Incision: Yes healing, Yes draining, No red, No swollen, Yes clean and dry Incision clean and dry: Yes Dressing: Yes clean, Yes dry, Yes intact Weight bearing status: non Neurological exam IM: Yes neurovascular intact - Labs CBC & BMP: 03/07/17 04:10 03/07/17 04:10 Labs: 03/07/17 03/06/17 03/06/17 04:10 08:11 04:19 Hgb 8.1 L 8.2 L 7.2 L Hct 24.3 L 24.5 L 21.7 L 03/05/17 03/05/17 03/04/17 12:20 04:45 04:28 Hgb 7.0 L* 7.2 L 7.8 L Hct 21.1 L 21.9 L 23.6 L 03/03/17 03/03/17 03/02/17 17:37 17:37 15:16 Hgb 8.2 L 9.6 L Hct 24.8 L TNP 29.4 L Assessment and Plan (1) Absence of lower leg below knee Plan for discharge to SNF if cleared from hospitalists for acute on chronic kidney failure. Still waiting bone biopsies and if no signs of osteomyelitis we may use Augmentin. Zosyn until bone biopsies result (may need outpatient IV for 1-2 days ) Rigid removable brace prescription given, need to contact [facility] for fitting at SNF. Aquacell dressing to be placed prior to discharge. Status: Acute
[2017-03-07] MEDS: INSULIN LISPRO 1 UNIT/0.01 ML UNIT SQ SCH ×4 (07:40→22:06)
[2017-03-07] MEDS: INSULIN GLARGINE, HUMAN 1 UNIT/0.01 ML SQ SCH ×2 (09:23→22:06)
[2017-03-07] MEDS: FISH OIL 1,000 MG CAPSULE PO SCH ×2 (09:24→22:03)
[2017-03-07] MEDS: FAMOTIDINE 20 MG TABLET PO SCH (09:24)
[2017-03-07] MEDS: TRIAMCINOLONE ACETONIDE TOPICAL SCH (09:24)
[2017-03-07] MEDS: CITALOPRAM 20 MG TABLET PO SCH (09:24)
[2017-03-07] MEDS: DOCUSATE SODIUM 100 MG CAPSULE PO SCH ×2 (09:24→22:03)
[2017-03-07] MEDS: ASPIRIN 325 MG ENTERIC COATED TABLET PO SCH (09:24)
--- NOTE | 2017-03-07 11:59 | Internal Med Progress Note ---
Medical - PN: Subj Patient information: Note initiated : 03/07/17 at 11:57 am Service Date, if different from initiated Date: [] Patient: Sree Molina a 56 y/o M admitted on 03/03/17 for Amputation Revision Right Leg Below the Knee. Chief Complaint: [] Interval history: Mr. Molina is a 56 year old Male with h/o DM, HTN, HLD, CKD, Right BKA who was admitted to the ortho service for revision of right BKA per the patient chart and patient, he fell down 3 -4 weeks ago, and injued the stump, the stump split open then, the patient was seen in [facility] ER and then later in the wound clinic to hep with wound management, apparanetly it did not help and therefore stump revision was planned. The patient has chr pain in the right leg, phantom pains he notes, he notes he has dry mouth, thristy and hungry. He has not taken his usual insulin x 2 days, due to appointments as well as planned sx today, he admits to having some kidney issues and is scheduled to see Dr Rey HE did some lab work yesterday which revealed K 5.2, Glucose 6.5, Na 126, no anion gap or acidosis, creat was 2.0, he was anemic at around 9.5. The patient underwent the right stump revion today , Medicine is consulted for medical management. beyond the leg pain, and dryness of mouth, hunger, patient has no other complaints. Mar 04 Patient seen examined, no acute overnight issues pt tolerating po well glucose was low overniht, but has gone up again today dose of lantus increased, sliding scale also changed from low to medium Pt has no acute complaints Mar 05 patient seen examined, low grade temp noted fall in hb noted to 7, getting 1 unit pt microbiolgoy is mssa satph pt this AM was very drowsy and sleepy and confused. not willing to talk much and intermittently confused labs show drop in hb, and worsening renal function, repeat labs ordered cxr neg abg neg will get head ct glucose control ok mar 06 patient seen examined, mental status much better head ct neg, workup neg anemia better afte transfusion good urine output, renal function still high, c reat is at 3.9 appreciate nephrology help keep BP > 100 systolic for good perfusion. will switch to Augmentin at discharge. mssa staph infection. Mar 07 patient seen examined, no acute overnight issues pt doing well, no acute complaints his bone biopsy and bone culture is pending, He is presently on vanco and zosy, his wound cx is mssa ortho plans to d/c him today, He will be needing Augmentin if no e/o osteomyelitis, should there be osteomyelitis, he will need PICC line and started on Zosyn till bone cultures are back, if mssa then cefezolin 2gms every 8 hyrs can be used Pharmacy to dose medications. patients renal function is improving, he will need follow up with Dr Rey in the nephrology clinic as outpatient He will need to be on lantus 15mg bid, and med dose sliding scale for humalog for his DM. Please do not prescribe metformin at discharge. Pertinent ROS: Denies headache, dizziness Denies chest pain, palpitations Denies cough or shortness of breath Denies abdominal pain, nausea or vomiting. - Constitutional Vitals: Vital Signs Temp Pulse Resp BP Pulse Ox 98.1 F 90 18 146/78 96 03/07/17 11:24 03/07/17 07:28 03/07/17 11:24 03/07/17 11:24 03/07/17 11:24 Period Temp Pulse Resp BP Sys/Enriquez Pulse Ox Last 24 Hr 97.9 F-98.9 F 80-90 12-18 108-156/63-90 95-98 Intake and Output 03/06/17 03/07/17 03/07/17 21:59 05:59 13:59 Intake Total 610 / 610 2900 / 2900 200 / 200 Output Total 1650 / 1650 575 / 575 450 / 450 Balance -1040 / -1040 2325 / 2325 -250 / -250 Weight 246 lb Intake & Output: Intake & Output 03/06/17 03/07/17 03/07/17 21:59 05:59 13:59 Intake Total 610 / 610 2900 / 2900 200 / 200 Output Total 1650 / 1650 575 / 575 450 / 450 Balance -1040 / -1040 2325 / 2325 -250 / -250 Weight 246 lb Intake: IV 50 / 50 2550 / 2550 Zosyn 2.25 gm In Dextrose 5% in 50 / 50 50 / 50 Water 50 ml @ 100 mls/hr IV Q6H [facility] Rx#:[id number] Oral 560 / 560 350 / 350 200 / 200 Output: Urine Catheter Amount 1650 / 1650 575 / 575 450 / 450 Other: Meal Breakfast Percent of Meal Consumed 100% Exam: Constitutional; Afebrile, cooperative, alert, not in distress. Eyes- No icterus, , No periorbital swelling Ears- Ext ear normal, hearing normal to conversation. Neck- Midline trachea, supple Respiratory system: Air Entry equal on both sides, No crackles or wheezing, no rhonchi. CVS- Rate rhythm regular, S1,S2 heard, no gallop, no rub. Abdomen- Soft nontender abdomen, no organomegaly, no tenderness, no guarding or rigidity, [employer]- AOOx3, moving all extremities, no gross focal deficit noted. Medical - PN: Obj Da - Labs CBC & Chem 7: 03/07/17 04:10 03/07/17 04:10 Labs: Abnormal Lab Results 03/07/17 03/07/17 03/06/17 04:10 04:10 08:11 RBC 2.71 L Hgb 8.1 L 8.2 L Hct 24.3 L 24.5 L Eos % (Auto) Sodium Potassium Chloride 110 H Carbon Dioxide 19 L BUN 25 H Creatinine 3.6 H Glucose Calcium 6.6 L Total Creatine Kinase NT-Pro-B Natriuret Pep Total Protein Albumin 1.8 L Globulin 4.1 H Albumin/Globulin Ratio 0.4 L Triglycerides 154 H Urine Protein Urine Glucose (UA) Urine Ketones Urine Occult Blood Ur Leukocyte Esterase U Griffith Prot/Creat Ratio 03/06/17 03/06/17 03/05/17 04:19 04:19 20:49 RBC 2.44 L Hgb 7.2 L Hct 21.7 L Eos % (Auto) 7.1 H Sodium Potassium Chloride Carbon Dioxide 18 L 19 L BUN 28 H 28 H Creatinine 3.9 H 3.9 H Glucose 158 H Calcium 6.5 L 6.7 L Total Creatine Kinase NT-Pro-B Natriuret Pep 1046.0 H Total Protein 5.2 L Albumin 1.5 L Globulin Albumin/Globulin Ratio 0.4 L Triglycerides 194 H Urine Protein Urine Glucose (UA) Urine Ketones Urine Occult Blood Ur Leukocyte Esterase U [place] Prot/Creat Ratio 03/05/17 03/05/17 03/05/17 15:55 14:13 14:13 RBC Hgb Hct Eos % (Auto) Sodium 132 L Potassium 5.6 H Chloride Carbon Dioxide 19 L BUN 27 H Creatinine 3.9 H Glucose 159 H Calcium 6.6 L Total Creatine Kinase NT-Pro-B Natriuret Pep Total Protein Albumin Globulin Albumin/Globulin Ratio Triglycerides Urine Protein >=500 A Urine Glucose (UA) 150 A Urine Ketones 5/tr A Urine Occult Blood 0.03 A Ur Leukocyte Esterase 25 A U [place] Prot/Creat Ratio 1.79 H 03/05/17 03/05/17 03/05/17 12:20 12:20 12:20 RBC 2.40 L Hgb 7.0 L* Hct 21.1 L Eos % (Auto) Sodium 132 L Potassium Chloride Carbon Dioxide 18 L BUN 26 H Creatinine 3.9 H Glucose 143 H Calcium 6.6 L Total Creatine Kinase 244 H NT-Pro-B Natriuret Pep Total Protein Albumin Globulin Albumin/Globulin Ratio Triglycerides Urine Protein Urine Glucose (UA) Urine Ketones Urine Occult Blood Ur Leukocyte Esterase U [place] Prot/Creat Ratio 03/05/17 03/05/17 04:45 04:45 RBC 2.48 L Hgb 7.2 L Hct 21.9 L Eos % (Auto) Sodium 132 L Potassium Chloride Carbon Dioxide 20 L BUN 26 H Creatinine 3.7 H Glucose 117 H Calcium 6.9 L Total Creatine Kinase NT-Pro-B Natriuret Pep Total Protein 5.6 L Albumin 1.6 L Globulin 4.0 H Albumin/Globulin Ratio 0.4 L Triglycerides 231 H Urine Protein Urine Glucose (UA) Urine Ketones Urine Occult Blood Ur Leukocyte Esterase U [place] Prot/Creat Ratio Meds: Medications Amitriptyline HCl (Elavil) 25 mg PO [facility] Last Admin: 03/06/17 21:10 Dose: 25 mg Aspirin (Ecotrin) 325 mg PO BID [facility] Last Admin: 03/07/17 09:24 Dose: 325 mg Atorvastatin Calcium (Lipitor) 20 mg PO [facility] Last Admin: 03/06/17 21:10 Dose: 20 mg Benzonatate (Tessalon) 100 mg PO TIDP PRN PRN Reason: Cough Citalopram Hydrobromide (Celexa) 20 mg PO DAILY [facility] Last Admin: 03/07/17 09:24 Dose: 20 mg Dextrose (Dextrose 50%) 0 ml IV UD PRN PRN Reason: Hypoglycemia Diagnostic Test (Pha) (Accu-Chek) 1 each FS ACHS [facility] Last Admin: 03/07/17 07:40 Dose: 1 each Docusate Sodium (Colace) 100 mg PO BID [facility] Last Admin: 03/07/17 09:24 Dose: 100 mg Ergocalciferol (Drisdol) 50,000 unit PO Sorto@0900 [facility] Famotidine (Pepcid) 20 mg PO DAILY [facility] Last Admin: 03/07/17 09:24 Dose: 20 mg Fish Oil (Fish Oil) 1,000 mg PO BID [facility] Last Admin: 03/07/17 09:24 Dose: 1,000 mg Glucose (Insta-Glucose) 15 gm PO PRN PRN PRN Reason: Hypoglycemia Piperacillin Sod/Tazobactam (Sod 2.25 gm/ Dextrose) 50 mls @ 100 mls/hr IV Q6H [facility] Last Admin: 03/07/17 05:36 Dose: 100 mls/hr Insulin Glargine (Lantus) 15 unit SQ BID [facility] Last Admin: 03/07/17 09:23 Dose: 15 unit Insulin Human Lispro (Humalog) 0 unit SQ ACHS [facility] PRN Reason: Protocol Last Admin: 03/07/17 07:40 Dose: Not Given Magnesium Hydroxide (Milk Of Magnesia) 30 ml PO BIDP PRN PRN Reason: Constipation Ondansetron HCl (Zofran) 4 mg IV Q4HP PRN PRN Reason: Nausea And Vomiting Triamcinolone Acetonide [ Triamcinolone Acetonide] Cream 15 dose TOPICAL DAILY [facility] Last Admin: 03/07/17 09:24 Dose: Not Given Sodium Chloride (Saline Flush) 10 ml IV Q8 [facility] Last Admin: 03/07/17 05:36 Dose: 10 ml Tramadol HCl (Ultram) 50 mg PO Q4-6HP PRN PRN Reason: Pain Medical - PN: A/P - Time Spent With Patient Total time spent is greater than 50% in coordination of care (as documented) at patient's floor/unit and/or counseling patient: - Narrative A/P Narrative: A/P DM uncontrolled: Due to non compliance with meds, glucose resonably controlled , continue with lantus 15 units bid, and med scale ssi upon discharge, do not restart metformin. Acute on chr renal failure, : appreciate nephrolgoy input, likely ATN, renal function improving, follow up with nephrology as outpatient. acute blood loss anemia: 1 unit prbc ordered by ortho. hb stable. Wound infection: Cultures positive for staph aureus, on broad spectrum abx will deescalate given mssa. d/c vanco. on zosyn for now, will need augmentin at discharge. Patients bone cultures are pending, and his home dose of antibiotics will be need to be decided on bone biopsy and bone cultures. HTN: BP ok, but on the lower end, hold bp meds to improve renal perfusion, bp stable, can resume bp meds at discharge. HLD resume statin Hyponatremia: likely pseudohyponatremia secondary to elevated glucose, resolved now. Hyperkalemia K resolved with one dose of Kayexalate. BPH: followed by Dr Grande as outpatient, on flomax, continue same. increase dose of flow max to 0.4mg bid. place amos for urine output measurement as well as need for frequent cath. Try to d/c amos and see if the patient is able to void by self, if unable to void, will need amos again and follow up with urology. Increase dose of flomax from 0.4mg qd to 0.4mg bid at discharge. DVT as per surgery CC diet Medical - PN: Qual - VTE Deep Vein Thrombosis/Pulmonary Embolism Present on Admission: No
--- NOTE | 2017-03-07 12:35 | Internal Med Progress Note ---
Medical - PN: Subj Patient information: Note initiated : 03/07/17 at 12:33 pm Service Date, if different from initiated Date: [] Patient: Sree Molina a 56 y/o M admitted on 03/03/17 for Amputation Revision Right Leg Below the Knee. Chief Complaint: [] Interval history: Mr. Molina is a 56 year old Male with h/o DM, HTN, HLD, CKD, Right BKA who was admitted to the ortho service for revision of right BKA per the patient chart and patient, he fell down 3 -4 weeks ago, and injued the stump, the stump split open then, the patient was seen in [facility] ER and then later in the wound clinic to hep with wound management, apparanetly it did not help and therefore stump revision was planned. The patient has chr pain in the right leg, phantom pains he notes, he notes he has dry mouth, thristy and hungry. He has not taken his usual insulin x 2 days, due to appointments as well as planned sx today, he admits to having some kidney issues and is scheduled to see Dr Rey HE did some lab work yesterday which revealed K 5.2, Glucose 6.5, Na 126, no anion gap or acidosis, creat was 2.0, he was anemic at around 9.5. The patient underwent the right stump revion today , Medicine is consulted for medical management. beyond the leg pain, and dryness of mouth, hunger, patient has no other complaints. Mar 04 Patient seen examined, no acute overnight issues pt tolerating po well glucose was low overniht, but has gone up again today dose of lantus increased, sliding scale also changed from low to medium Pt has no acute complaints Mar 05 patient seen examined, low grade temp noted fall in hb noted to 7, getting 1 unit pt microbiolgoy is mssa satph pt this AM was very drowsy and sleepy and confused. not willing to talk much and intermittently confused labs show drop in hb, and worsening renal function, repeat labs ordered cxr neg abg neg will get head ct glucose control ok mar 06 patient seen examined, mental status much better head ct neg, workup neg anemia better afte transfusion good urine output, renal function still high, c reat is at 3.9 appreciate nephrology help keep BP > 100 systolic for good perfusion. will switch to Augmentin at discharge. mssa staph infection. Mar 07 patient seen examined, no acute overnight issues pt doing well, no acute complaints his bone biopsy and bone culture is pending, He is presently on vanco and zosy, his wound cx is mssa ortho plans to d/c him today, He will be needing Augmentin if no e/o osteomyelitis, should there be osteomyelitis, he will need PICC line and started on Zosyn till bone cultures are back, if mssa then cefezolin 2gms every 8 hyrs can be used Pharmacy to dose medications. patients renal function is improving, he will need follow up with Dr Rey in the nephrology clinic as outpatient He will need to be on lantus 15mg bid, and med dose sliding scale for humalog for his DM. Please do not prescribe metformin at discharge. ll - Constitutional Vitals: Vital Signs Temp Pulse Resp BP Pulse Ox 98.1 F 90 18 146/78 96 03/07/17 11:24 03/07/17 07:28 03/07/17 11:24 03/07/17 11:24 03/07/17 11:24 Period Temp Pulse Resp BP Sys/Enriquez Pulse Ox Last 24 Hr 97.9 F-98.9 F 80-90 12-18 108-156/63-90 95-98 Intake and Output 03/06/17 03/07/17 03/07/17 21:59 05:59 13:59 Intake Total 610 / 610 2900 / 2900 250 / 250 Output Total 1650 / 1650 575 / 575 450 / 450 Balance -1040 / -1040 2325 / 2325 -200 / -200 Weight 246 lb Intake & Output: Intake & Output 03/06/17 03/07/17 03/07/17 21:59 05:59 13:59 Intake Total 610 / 610 2900 / 2900 250 / 250 Output Total 1650 / 1650 575 / 575 450 / 450 Balance -1040 / -1040 2325 / 2325 -200 / -200 Weight 246 lb Intake: IV 50 / 50 2550 / 2550 50 / 50 Zosyn 2.25 gm In Dextrose 5% in 50 / 50 50 / 50 50 / 50 Water 50 ml @ 100 mls/hr IV Q6H ON [facility] OF [facility] Rx#:[id number] Oral 560 / 560 350 / 350 200 / 200 Output: Urine Catheter Amount 1650 / 1650 575 / 575 450 / 450 Other: Meal Breakfast Percent of Meal Consumed 100% Medical - PN: Obj Da - Labs CBC & Chem 7: 03/07/17 04:10 03/07/17 04:10 Labs: Abnormal Lab Results 03/07/17 03/07/17 03/06/17 04:10 04:10 08:11 RBC 2.71 L Hgb 8.1 L 8.2 L Hct 24.3 L 24.5 L Eos % (Auto) Sodium Potassium Chloride 110 H Carbon Dioxide 19 L BUN 25 H Creatinine 3.6 H Glucose Calcium 6.6 L Total Creatine Kinase NT-Pro-B Natriuret Pep Total Protein Albumin 1.8 L Globulin 4.1 H Albumin/Globulin Ratio 0.4 L Triglycerides 154 H Urine Protein Urine Glucose (UA) Urine Ketones Urine Occult Blood Ur Leukocyte Esterase U [place] Prot/Creat Ratio 03/06/17 03/06/17 03/05/17 04:19 04:19 20:49 RBC 2.44 L Hgb 7.2 L Hct 21.7 L Eos % (Auto) 7.1 H Sodium Potassium Chloride Carbon Dioxide 18 L 19 L BUN 28 H 28 H Creatinine 3.9 H 3.9 H Glucose 158 H Calcium 6.5 L 6.7 L Total Creatine Kinase NT-Pro-B Natriuret Pep 1046.0 H Total Protein 5.2 L Albumin 1.5 L Globulin Albumin/Globulin Ratio 0.4 L Triglycerides 194 H Urine Protein Urine Glucose (UA) Urine Ketones Urine Occult Blood Ur Leukocyte Esterase U [place] Prot/Creat Ratio 03/05/17 03/05/17 03/05/17 15:55 14:13 14:13 RBC Hgb Hct Eos % (Auto) Sodium 132 L Potassium 5.6 H Chloride Carbon Dioxide 19 L BUN 27 H Creatinine 3.9 H Glucose 159 H Calcium 6.6 L Total Creatine Kinase NT-Pro-B Natriuret Pep Total Protein Albumin Globulin Albumin/Globulin Ratio Triglycerides Urine Protein >=500 A Urine Glucose (UA) 150 A Urine Ketones 5/tr A Urine Occult Blood 0.03 A Ur Leukocyte Esterase 25 A U [place] Prot/Creat Ratio 1.79 H 03/05/17 03/05/17 03/05/17 12:20 12:20 12:20 RBC 2.40 L Hgb 7.0 L* Hct 21.1 L Eos % (Auto) Sodium 132 L Potassium Chloride Carbon Dioxide 18 L BUN 26 H Creatinine 3.9 H Glucose 143 H Calcium 6.6 L Total Creatine Kinase 244 H NT-Pro-B Natriuret Pep Total Protein Albumin Globulin Albumin/Globulin Ratio Triglycerides Urine Protein Urine Glucose (UA) Urine Ketones Urine Occult Blood Ur Leukocyte Esterase U [place] Prot/Creat Ratio 03/05/17 03/05/17 04:45 04:45 RBC 2.48 L Hgb 7.2 L Hct 21.9 L Eos % (Auto) Sodium 132 L Potassium Chloride Carbon Dioxide 20 L BUN 26 H Creatinine 3.7 H Glucose 117 H Calcium 6.9 L Total Creatine Kinase NT-Pro-B Natriuret Pep Total Protein 5.6 L Albumin 1.6 L Globulin 4.0 H Albumin/Globulin Ratio 0.4 L Triglycerides 231 H Urine Protein Urine Glucose (UA) Urine Ketones Urine Occult Blood Ur Leukocyte Esterase U [place] Prot/Creat Ratio Meds: Medications Amitriptyline HCl (Elavil) 25 mg PO HS [facility] Last Admin: 03/06/17 21:10 Dose: 25 mg Aspirin (Ecotrin) 325 mg PO BID [facility] Last Admin: 03/07/17 09:24 Dose: 325 mg Atorvastatin Calcium (Lipitor) 20 mg PO HS [facility] Last Admin: 03/06/17 21:10 Dose: 20 mg Benzonatate (Tessalon) 100 mg PO TIDP PRN PRN Reason: Cough Citalopram Hydrobromide (Celexa) 20 mg PO DAILY [facility] Last Admin: 03/07/17 09:24 Dose: 20 mg Dextrose (Dextrose 50%) 0 ml IV UD PRN PRN Reason: Hypoglycemia Diagnostic Test (Pha) (Accu-Chek) 1 each FS ACHS [facility] Last Admin: 03/07/17 12:20 Dose: 1 each Docusate Sodium (Colace) 100 mg PO BID [facility] Last Admin: 03/07/17 09:24 Dose: 100 mg Ergocalciferol (Drisdol) 50,000 unit PO Sorto@0900 [facility] Famotidine (Pepcid) 20 mg PO DAILY [facility] Last Admin: 03/07/17 09:24 Dose: 20 mg Fish Oil (Fish Oil) 1,000 mg PO BID [facility] Last Admin: 03/07/17 09:24 Dose: 1,000 mg Glucose (Insta-Glucose) 15 gm PO PRN PRN PRN Reason: Hypoglycemia Piperacillin Sod/Tazobactam (Sod 2.25 gm/ Dextrose) 50 mls @ 100 mls/hr IV Q6H [facility] Last Admin: 03/07/17 12:31 Dose: 100 mls/hr Insulin Glargine (Lantus) 15 unit SQ BID [facility] Last Admin: 03/07/17 09:23 Dose: 15 unit Insulin Human Lispro (Humalog) 0 unit SQ ACHS [facility] PRN Reason: Protocol Last Admin: 03/07/17 12:31 Dose: 4 unit Magnesium Hydroxide (Milk Of Magnesia) 30 ml PO BIDP PRN PRN Reason: Constipation Ondansetron HCl (Zofran) 4 mg IV Q4HP PRN PRN Reason: Nausea And Vomiting Triamcinolone Acetonide [ Triamcinolone Acetonide] Cream 15 dose TOPICAL DAILY [facility] Last Admin: 03/07/17 09:24 Dose: Not Given Sodium Chloride (Saline Flush) 10 ml IV Q8 [facility] Last Admin: 03/07/17 12:31 Dose: 10 ml Tramadol HCl (Ultram) 50 mg PO Q4-6HP PRN PRN Reason: Pain Medical - PN: A/P - Time Spent With Patient Total time spent is greater than 50% in coordination of care (as documented) at patient's floor/unit and/or counseling patient: - Narrative A/P Narrative: A/P DM uncontrolled: Due to non compliance with meds, glucose resonably controlled , continue with lantus 15 units bid, and med scale ssi upon discharge, do not restart metformin. Acute on chr renal failure, : appreciate nephrolgoy input, likely ATN, renal function improving, follow up with nephrology as outpatient. acute blood loss anemia: 1 unit prbc ordered by ortho. hb stable. Wound infection: Cultures positive for staph aureus, on broad spectrum abx will deescalate given mssa. d/c vanco. on zosyn for now, will need augmentin at discharge. Patients bone cultures are pending, and his home dose of antibiotics will be need to be decided on bone biopsy and bone cultures. HTN: BP ok, but on the lower end, hold bp meds to improve renal perfusion, bp stable, can resume bp meds at discharge. HLD resume statin Hyponatremia: likely pseudohyponatremia secondary to elevated glucose, resolved now. Hyperkalemia K resolved with one dose of Kayexalate. BPH: followed by Dr Grande as outpatient, on flomax, continue same. increase dose of flow max to 0.4mg bid. place amos for urine output measurement as well as need for frequent cath. Try to d/c amos and see if the patient is able to void by self, if unable to void, will need amos again and follow up with urology. Increase dose of flomax from 0.4mg qd to 0.4mg bid at discharge. DVT as per surgery CC diet Medical - PN: Qual - VTE Deep Vein Thrombosis/Pulmonary Embolism Present on Admission: No
--- NOTE | 2017-03-07 13:21 | Surgical Pathology Report ---
HISTOLOGY SPECIMEN MICROSCOPIC DIAGNOSIS BONE, RIGHT DISTAL TIBIA, BIOPSY: -- CHRONIC OSTEOMYELITIS. -- NO ACUTE (NEUTROPHILIC) OSTEOMYELITIS IDENTIFIED. 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 GROSS DESCRIPTION Received in formalin labeled with the patient information, are multiple friable portions of rock to pink-rock bone in aggregate 2.0 x 0.5 x 0.3 cm. Totally submitted - one cassette following decalcification. (STM:[email or web address]) Electronically Signed by: Jordy Painter M.D.
--- NOTE | 2017-03-07 16:09 | Nephrology Progress Note ---
Subjective Patient information: Note initiated : 03/07/17 at 4:04 pm Service Date, if different from initiated Date: [] Patient: Sree Molina 56 y/o M admitted on 03/03/17 for Amputation Revision Right Leg Below the Knee. Chief Complaint: Did not urinate since the catheter was out, but he just did. He will be going to SNF tomorrow. Principal diagnosis: reamputation 3 days vago, renal failure Objective - Vital Signs Vital signs: Vital Signs Temp Pulse Pulse Pulse Resp BP BP 03/07/17 11:24 98.1 F 18 146/78 03/07/17 11:00 98 H 03/07/17 07:28 90 03/07/17 06:56 98.7 F 18 143/80 03/07/17 04:08 145/80 03/07/17 04:00 97.9 F 89 12 156/82 03/06/17 23:41 98.9 F 83 12 132/80 03/06/17 20:00 98.9 F 80 16 130/90 Pulse Ox 03/07/17 11:24 96 03/07/17 11:00 03/07/17 07:28 96 03/07/17 06:56 97 03/07/17 04:08 03/07/17 04:00 96 03/06/17 23:41 98 03/06/17 20:00 98 Intake and Output 03/07/17 03/07/17 03/07/17 05:59 13:59 21:59 Intake Total 2900 / 2900 250 / 250 Output Total 575 / 575 450 / 450 Balance 2325 / 2325 -200 / -200 Intake: IV 2550 / 2550 50 / 50 Zosyn 2.25 gm In Dextrose 5% in 50 / 50 50 / 50 Water 50 ml @ 100 mls/hr IV Q6H [facility] Rx#:[id number] Oral 350 / 350 200 / 200 Output: Urine Catheter Amount 575 / 575 450 / 450 Other: Meal Breakfast Percent of Meal Consumed 100% Intake & Output: Intake & Output 03/07/17 03/07/17 03/07/17 05:59 13:59 21:59 Intake Total 2900 / 2900 250 / 250 Output Total 575 / 575 450 / 450 Balance 2325 / 2325 -200 / -200 Intake: IV 2550 / 2550 50 / 50 Zosyn 2.25 gm In Dextrose 5% in 50 / 50 50 / 50 Water 50 ml @ 100 mls/hr IV Q6H [facility] Rx#:[id number] Oral 350 / 350 200 / 200 Output: Urine Catheter Amount 575 / 575 450 / 450 Other: Meal Breakfast Percent of Meal Consumed 100% - General Appearance General appearance: well-developed, well-nourished EENT: ATNC Neck: no JVD Respiratory: no kyphosis Cardiology: no murmurs Gastrointestinal: normoactive bowel sounds Integumentary: no rash Neurologic: no focal deficit, alert and oriented x3 - Lab 03/07/17 04:10 03/07/17 04:10 Most recent lab results Calcium 6.6 mg/dl (8.6-10.4) L 03/07/17 04:10 Phosphorus 3.6 mg/dL (2.7-4.5) 03/07/17 04:10 Magnesium 2.3 mg/dL (1.6-2.5) 03/07/17 04:10 Assessment and Plan (1) Acute kidney injury Status: Acute Comment: Patient with chronic kidney disease, baseline creatinine of 2.0, admitted for revision of right BKA. Post op he has been hypotensive, low grade fever and increasing confusion, almost oliguric. Creatinine up to 3.7. OUSMANE secondary to ATN. He his bp is better and he is making more urine. Creatinine is better. Can restart his home meds as his bp is better. Restart neurontin.
[2017-03-07] MEDS: AMOXICILLIN/POTASSIUM CLAV 875 MG TABLET PO SCH (17:26)
[2017-03-07] MEDS ORDERED: GABAPENTIN 300 MG CAPSULE PO SCH (21:00)
[2017-03-07] MEDS ORDERED: TAMSULOSIN 0.4 MG CAPSULE PO SCH (21:00)
[2017-03-07] MEDS: traMADol 50 MG TABLET PO PRN (22:01)
[2017-03-07] MEDS: ATORVASTATIN 20 MG TABLET PO SCH (22:02)
[2017-03-07] MEDS: AMITRIPTYLINE 25 MG TABLET PO SCH (22:03)
[2017-03-08 05:41] LABS: ALT/SGPT < 5 U/l (0-40); Albumin 1.8 gm/dL (3.2-5.2); Albumin/Globulin Ratio 0.4 (1.0-2.3); Alkaline Phosphatase 93 U/L (39-117); Bilirubin,Direct < 0.2 mg/dL (0.0-0.3); Blood Urea Nitrogen 21 mg/dl (6-20); Gamma Glutamyl Transpeptidase 13 U/L (8-61); Magnesium 2.1 mg/dL (1.6-2.5); Uric Acid 6.8 mg/dL (2.5-8.0)
[2017-03-08 05:56] LABS: Basophils # (Auto) 0 K/mcL (0.0-0.3); Basophils % (Auto) 0.3 % (0.0-2.0); Eosinophils # (Auto) 0.2 K/mcL (0.0-0.7); Eosinophils % (Auto) 2.1 % (0.0-7.0); Granulocytes % (Auto) 82.9 % (38.0-78.0); Lymphocytes # (Auto) 0.8 K/mcL (1.5-4.8); Lymphocytes % (Auto) 8.5 % (15.5-49.0); Mean Cell Volume 89.3 fL (80.0-100.0); Mean Corpuscular HGB Conc 32.8 g/dL (31.0-36.0); Mean Corpuscular Hemoglobin 29.3 pg (26.0-34.0); Monocytes # (Auto) 0.6 K/mcL (0.1-0.9); Monocytes % (Auto) 6.2 % (1.0-12.0); Platelet Count 294 K/mcL (140-440); RBC 2.75 M/mcL (4.50-5.90); Red Cell Distribution Width 13.5 % (11.5-14.5)
[2017-03-08] MEDS: AMOXICILLIN/POTASSIUM CLAV 875 MG TABLET PO SCH (07:25)
[2017-03-08] MEDS: INSULIN LISPRO 1 UNIT/0.01 ML UNIT SQ SCH (07:25)
[2017-03-08] MEDS: DOCUSATE SODIUM 100 MG CAPSULE PO SCH (08:17)
[2017-03-08] MEDS: CITALOPRAM 20 MG TABLET PO SCH (08:17)
[2017-03-08] MEDS: INSULIN GLARGINE, HUMAN 1 UNIT/0.01 ML SQ SCH ×2 (08:18→08:31)
[2017-03-08] MEDS: FAMOTIDINE 20 MG TABLET PO SCH (08:18)
[2017-03-08] MEDS: FISH OIL 1,000 MG CAPSULE PO SCH (08:18)
[2017-03-08] MEDS: traMADol 50 MG TABLET PO PRN (08:19)
[2017-03-08] MEDS: TRIAMCINOLONE ACETONIDE TOPICAL SCH (08:32)
[2017-03-08] MEDS ORDERED: ASPIRIN 325 MG ENTERIC COATED TABLET PO SCH (09:00)
[2017-03-08] MEDS ORDERED: DILTIAZEM 120 MG CAP.XL.24H PO SCH (09:00)
--- NOTE | 2017-03-08 09:07 | Discharge Summary ---
Medical - DS: Prov Patient information: Note initiated : 03/08/17 at 8:52 am Service Date, if different from initiated Date: [] Patient: Sree Molina 56 y/o M admitted on 03/03/17 for Amputation Revision Right Leg Below the Knee. Chief Complaint: [] Date of admission: 03/03/17 15:57 Discharge date: 03/08/17 Primary care physician: Buddy Galloway Consults: 03/03/17 Consult to Physician [CONS] Urgent Comment: already called Consulting Provider: Anastacia Brunner Reason For Exam: uncontrolled sugars 03/05/17 14:14 Consult to Physician [CONS] Routine Comment: Consulting Provider: Michael Rey Reason For Exam: Physician to Consult Medical - DS: Meds - Discharge Medications Prescriptions: Amoxicillin/Potassium Clav [Augmentin] 875 mg PO BIDCC #14 tablet Insulin Glargine, Human [Lantus] 20 unit SQ HS #1 unit Active and Home Medications: Home Medications aspirin 325 mg tablet 650 mg PO QDAY tab 08/19/14 [History Confirmed 03/02/17 Last Taken Unknown] docusate sodium 100 mg capsule 100 mg PO BID cap 08/19/14 [History Confirmed Last Taken Unknown] enalapril maleate 10 mg tablet 5 mg PO QDAY tab 08/19/14 [History Confirmed 05/15 Last Taken Unknown] ergocalciferol (vitamin D2) 50,000 unit capsule 50,000 unit PO QWEEK cap [History Confirmed 03/02/17 Last Taken Unknown] hydrocodone 5 mg-acetaminophen 325 mg tablet 1 tab PO Q8H PRN tab 08/19/14 [ History Confirmed 03/02/17 Last Taken Unknown] insulin detemir 100 unit/mL subcutaneous solution 100 unit SUB-Q .COMPLEX ml [History Confirmed 03/02/17 Last Taken Unknown] metformin 500 mg tablet 500 mg PO QDAY tab 08/19/14 [History Confirmed Last Taken Unknown] omega-3 fatty acids 1,000 mg capsule 1,000 mg PO BID cap 08/19/14 [History Confirmed 03/02/17 Last Taken Unknown] sildenafil 100 mg tablet 100 mg PO ONCE #10 tab 04/02/15 [Rx Confirmed 03/02/17 Last Taken Unknown] tamsulosin 0.4 mg capsule 0.4 mg PO QDAY #30 cap 11/09/16 [Rx Confirmed Last Taken Unknown] Amitriptyline [Elavil] 25 mg PO HS 03/02/17 [History Confirmed 03/02/17 Last Taken Unknown] Benzonatate [Tessalon] 100 mg PO TIDP PRN 03/02/17 [History Confirmed 03/02/17 Last Taken Unknown] Famotidine [Pepcid] 20 mg PO DAILY 03/02/17 [History Confirmed 03/02/17 Last Taken Unknown] Triamcinolone Acetonide 15 gm TP DAILY 03/02/17 [History Confirmed 03/02/17 Last Taken Unknown] Atorvastatin [Lipitor] 20 mg PO HS 03/03/17 [History Confirmed 03/03/17 Last Taken Unknown] Citalopram [Celexa] 20 mg PO DAILY 03/03/17 [History Confirmed 03/03/17 Last Taken Unknown] Diltiazem [Cardizem Cd] 120 mg PO DAILY 03/03/17 [History Confirmed 03/03/17 Last Taken Unknown] Gabapentin [Neurontin] 300 mg PO ONCE 03/03/17 [History Confirmed 03/03/17 Last Taken Unknown] Insulin Detemir [Levemir Flextouch] 03/03/17 [History Last Taken 03/01/17] Medical - DS: Hosp Hospital course: Mr. Molina is a 56 year old Male with h/o DM, HTN, HLD, CKD, Right BKA who was admitted to the ortho service for revision of right BKA per the patient chart and patient, he fell down 3 -4 weeks ago, and injued the stump, the stump split open then, the patient was seen in [facility] ER and then later in the wound clinic, it did not help and therefore stump revision was planned. The patient has chr pain in the right leg, phantom pains he notes, he notes he has dry mouth, thristy and hungry. He has not taken his usual insulin x 2 days, due to appointments as well as planned sx today, he admits to having some kidney issues and is scheduled to see Dr Rey He did some lab work yesterday which revealed K 5.2, Glucose 6.5, Na 126, no anion gap or acidosis, creat was 2.0, he was anemic at around 9.5. The patient underwent the right stump revision by dr Edgard Patterson for dehiscence on 03/03/2017. The wound has been healing well. A prescription for a rigid removable brace was given by ortho. Other problems during admission: 1. Acute on chronic renal failure. Baseline Cr around 2 . Up to 3.9. Dr. Yamilet Rey (renal) felt that it was due to hypotensive episode and expected it to improve once clinical condition stabilized. Cr today (03/08): 2.9. Patient is to follow-up with dr Rey in the nephrology clinic. 2. Type 2 DM. Due to renal failure the Metformin was discontinued. Patient will be discharged on Lantus 20 Units HS and Lispro insulin sliding scale. 3. Chronic osteomyelitis right stump (s/p BKA). Wound culture showed Staph, aureus, no anaerobes. Due to miscommunication a bone culture was not done. Pathology showed no evidence of acute osteomyelitis, only changes consistent chronic osteomylitis. The Zosyn IV was discontinued and patient was switched to Augmentin. This will be continued for another week. 4. BPH with hesistancy. Flomax restarted. Will most likely improved once able to stand with urination. Discharge diagnosis: Traumatic dehiscence right BKA, acute on chronic renal failure, DM Reason for admission: Traumatic dehiscence right BKA, failed outpatient management - Time Spent with Patient Total time spent providing and/or coordinating discharge services: Medical - DS: Exam - Constitutional Vitals: Vital Signs Temp Pulse Pulse Resp BP BP Pulse Ox 03/08/17 07:17 95.8 F L 89 16 160/90 97 03/08/17 04:00 97.5 F 93 H 16 148/76 97 03/07/17 23:50 97.1 F 76 16 150/84 96 03/07/17 20:30 97.9 F 75 16 160/88 98 03/07/17 16:00 97.9 F 18 139/66 96 03/07/17 15:00 98 H 03/07/17 11:24 98.1 F 18 146/78 96 03/07/17 11:00 98 H Intake and Output 03/07/17 03/08/17 03/08/17 21:59 05:59 13:59 Intake Total 570 / 570 Output Total 250 / 250 475 / 475 Balance -250 / -250 95 / 95 Intake: Oral 570 / 570 Output: Void Amount 250 / 250 475 / 475 Other: Weight 246 lb 8 oz - Respiratory Respiratory exam: Present: normal respiratory exam - Cardiovascular Cardiovascular exam: Present: normal rate and rhythm - GI/Abdominal GI/Abdominal exam: Present: normal bowel sounds - Extremities Exam Additional comments: Right BKA stump: praveen in place. Incision looks fine. Medical - DS: Data Labs on day of discharge: Labs from last 24 hours 03/08/17 03/08/17 04:20 04:20 WBC 9.6 RBC 2.75 L Hgb 8.0 L Hct 24.5 L MCV 89.3 MCH 29.3 MCHC 32.8 RDW 13.5 Plt Count 294 MPV 7.3 L Gran % 82.9 H Lymph % (Auto) 8.5 L Wood % (Auto) 6.2 Eos % (Auto) 2.1 Baso % (Auto) 0.3 Gran # 8.0 Lymph # (Auto) 0.8 L Wood # (Auto) 0.6 Eos # (Auto) 0.2 Baso # (Auto) 0 Sodium 139 Potassium 4.0 Chloride 110 H Carbon Dioxide 18 L Anion Gap 11.0 BUN 21 H Creatinine 2.9 H GFR Calculation 23 Glucose 59 L Uric Acid 6.8 Calcium 6.8 L Phosphorus 3.5 Magnesium 2.1 Total Bilirubin < 0.2 Direct Bilirubin < 0.2 GGT 13 AST 14 ALT < 5 Alkaline Phosphatase 93 Lactate Dehydrogenase 161 Total Protein 6.2 Albumin 1.8 L Globulin 4.4 H Albumin/Globulin Ratio 0.4 L Triglycerides 132 Preliminary micro results at discharge 03/05/17 12:11 Blood Culture - Preliminary Blood 03/05/17 12:20 Blood Culture - Preliminary Blood 03/03/17 15:38 Anaerobic Culture - Preliminary Wound - Not Given Medical - DS: A/P - Patient/Caregiver Discharge Instructions Activity: increase activity as tolerated Diet: Consistent Carbohydrate (2644-8993 kcal) Additional Instructions: Discharge Instructions: Take full course of antibiotics. Do the exercises at home that physical therapy gave you. Wear comfortable clothing for your physical therapy. Weight bearing as tolerated. If you have the Aquacel Ag dressing, leave in place for 7 days then remove. If dressing becomes soiled (turns black), remove and use gauze 4x4 dressing and silvasorb ointment and change daily. Keep incision clean and dry. If you have Dermabond (a dressing with a mesh-like appearance), leave open to air. You may start showering on post op day #2. The Dermabond dressing can get wet, do not scrub dressing. Pat dry. To avoid constipation while taking any narcotic pain medication, take an over the counter stool softener/laxative. Use your Cryocuff or ice packs as directed, on for 20 minutes at a time throughout the day. This and elevation will help with pain and swelling. Call your physician for fevers above 100.5 or pain not controlled by medication. Your prescriptions are with your discharge information. Some medications were electronically transmitted to your pharmacy of choice. Prescriptions: Amoxicillin/Potassium Clav [Augmentin] 875 mg PO BIDCC #14 tablet Insulin Glargine, Human [Lantus] 20 unit SQ HS #1 unit - Problem Maintenance (1) Acute kidney injury Status: Chronic Comment: Patient with chronic kidney disease, baseline creatinine of 2.0, admitted for revision of right BKA. Post op he has been hypotensive, low grade fever and increasing confusion, almost oliguric. Creatinine up to 3.7. OUSMANE secondary to ATN. He his bp is better and he is making more urine. Creatinine is better. Can restart his home meds as his bp is better. Restart neurontin. (2) History of amputation below knee Status: Acute Qualifiers: Laterality: right Qualified Code(s): Z89.511 - Acquired absence of right leg below knee - Follow up Plan Follow up with: Tan Fry PA-C [Physician Vault Manager] - (Please call and schedule a follow up with Tan Purcell PA-C in 7-10 days. ) Michael Rey MD [Physician] - Disposition: Xfer SNF Prognosis: Fair Rehab Potential: Good I certify that the patient requires SNF services: Yes Overall status at discharge: patient is progressing back to baseline Medical - DS: Qual - VTE Deep Vein Thrombosis/Pulmonary Embolism Present on Admission: No
--- NOTE | 2017-03-08 14:29 | Nephrology Progress Note ---
Subjective Patient information: Note initiated : 03/08/17 at 2:28 pm Service Date, if different from initiated Date: [] Patient: Sree Molina 56 y/o M admitted on 03/03/17 for Amputation Revision Right Leg Below the Knee. Chief Complaint: Feeling well. Has been urinating. Principal diagnosis: reamputation 3 days vago, renal failure Objective - Vital Signs Vital signs: Vital Signs Temp Pulse Pulse Resp BP BP Pulse Ox 03/08/17 10:31 97.1 F 75 12 168/86 97 03/08/17 07:17 95.8 F L 89 16 160/90 97 03/08/17 04:00 97.5 F 93 H 16 148/76 97 03/07/17 23:50 97.1 F 76 16 150/84 96 03/07/17 20:30 97.9 F 75 16 160/88 98 03/07/17 16:00 97.9 F 18 139/66 96 03/07/17 15:00 98 H Intake and Output 03/08/17 03/08/17 03/08/17 05:59 13:59 21:59 Intake Total 570 / 570 200 / 200 Output Total 475 / 475 Balance 95 / 95 200 / 200 Intake: Oral 570 / 570 200 / 200 Output: Void Amount 475 / 475 Other: Meal Breakfast Percent of Meal Consumed 100% Intake & Output: Intake & Output 03/08/17 03/08/17 03/08/17 05:59 13:59 21:59 Intake Total 570 / 570 200 / 200 Output Total 475 / 475 Balance 95 / 95 200 / 200 Intake: Oral 570 / 570 200 / 200 Output: Void Amount 475 / 475 Other: Meal Breakfast Percent of Meal Consumed 100% - General Appearance General appearance: well-developed EENT: ATNC Neck: no JVD Respiratory: no kyphosis Cardiology: no murmurs Gastrointestinal: normoactive bowel sounds Neurologic: no focal deficit - Lab 03/08/17 04:20 03/08/17 04:20 Most recent lab results Calcium 6.8 mg/dl (8.6-10.4) L 03/08/17 04:20 Phosphorus 3.5 mg/dL (2.7-4.5) 03/08/17 04:20 Magnesium 2.1 mg/dL (1.6-2.5) 01/09/18 04:20 Assessment and Plan (1) Acute kidney injury Status: Chronic Comment: Patient with chronic kidney disease, baseline creatinine of 2.0, admitted for revision of right BKA. Post op he has been hypotensive, low grade fever and increasing confusion, almost oliguric. Creatinine up to 3.7. OUSMANE secondary to ATN. He his bp is better and he is making more urine. Creatinine is continuing to get better. Will followup with him next week. Can restart his home meds as his bp is better. Restarted neurontin.
[2017-03-13] MEDS ORDERED: ERGOCALCIFEROL (VITAMIN D2) 50,000 UNIT CAPSULE PO SCH (09:00)
== END 2017-03-08 10:55 | DRG 474 ==
LOC: SUR 12:22 → MEDSUR 15:57
PROVIDERS: ADMIT Orthopaedic Surgery Foot and Ankle Surgery; ATTEND Specialist